=== PATIENT | female | born 1940 | race Caucasian/White ===

== ENCOUNTER 2019-11-14 11:40 | Inpatient (IN) | payer MEDICARE ==
[~2019-11-14 11:40] MED LIST: Iopamidol-370 76% 500 ML 1 ML ONE
[2019-11-14] MEDS ORDERED: Ondansetron PF 4 MG/2 ML Vial ONE (12:23)
[2019-11-14] MEDS ORDERED: Morphine 4 MG/ML VIAL ONE (12:23)
[2019-11-14 12:28] LABS: #Lymphocytes 0.5 thou/uL (1.20-3.40); #Monocytes 0.3 thou/uL (0.11-0.59); #Neutrophils 4.7 thou/uL (1.40-6.50); %Basophils 0.6 % (0.0-1.0); %Eosinophils 0.6 % (0.0-10.0); %Lymphocytes 8.6 % (21.0-51.0); %Monocytes 5.5 % (0.0-10.0); %Neutrophils 84.8 % (42.0-75.0); Hemoglobin 11.3 g/dL (12.0-16.0); Mean Corpuscular HGB CONC 31.3 g/dL (32.0-36.0); Mean Corpuscular Hemoglobin 25.8 pg (27.0-31.0); Mean Corpuscular Volume 82.3 fL (78.0-98.0); Mean Platelet Volume 10.9 fL (7.4-10.4); Platelet Count 169 thou/uL (130-400); White Blood Cell (WBC) Count 5.6 thou/uL (4.8-10.8)
--- NOTE | 2019-11-14 12:51 | RAD ---
PORTABLE CHEST: HISTORY: Acute liver failure. Bronchitis. COMPARISON: None. FINDINGS: The heart is mildly enlarged. Mild vascular engorgement. A single AICD lead overlies the right ventri mehul. CP angles are obscured and I cannot exclude small effusions. There could be mild bibasilar atele ctasis or infiltrate. The left lung base is poorly evaluated. IMPRESSION: Mild cardiomegaly and mild vascular engorgement. Evidence of small effusions. Question left basilar a telectasis or infiltrate. POS: [facility]
[2019-11-14 12:57] LABS: ALT (SGPT) 108 U/L (8-55); AST (SGOT) 315 U/L (5-34); Albumin 3.5 g/dL (3.4-4.8); Alkaline Phosphatase 62 U/L (40-110); Anion Gap 12 mmol/L (10-20); BUN (Urea Nitrogen) 28 mg/dL (9.8-20.1); Bilirubin, Total 0.8 mg/dL (0.2-1.2); CK (CPK) 33 U/L (29-168); Calc. Creatinine Clearance 0 mL/min (70-130); Calcium 8.1 mg/dL (7.8-10.44); Carbon Dioxide 30 mmol/L (23-31); Chloride 100 mmol/L (98-107); Estimated GFR-MDRD 41; Globulin 3.3 g/dL (2.4-3.5); Glucose 132 mg/dL (83-110); Lipase 34 U/L (8-78); Potassium 3.9 mmol/L (3.5-5.1); Protein, Total 6.8 g/dL (6.0-8.3); Sodium 138 mmol/L (136-145)
--- NOTE | 2019-11-14 13:37 | CT ---
CT ABDOMEN AND PELVIS WITH IV CONTRAST: INDICATIONS: Left abdominal pain. COMPARISON: There are no comparison studies. FINDINGS: There are small bilateral pleural effusions on images through the lung bases. Low volume ascites is noted with fluid around the liver margin. There is a small amount of fluid arou nd the spleen and down the colonic gutters. The liver shows irregular margins, suggesting changes of cirrhosis. The liver is mildly heterogeneous with no focal liver mass lesion identified. The spleen is upper normal in size, measured at 12 cm. The pancreas is unremarkable. The adrenal glands are normal. The kidneys are unremarkable. Small bowel loops are of normal caliber. Appendix appears normal. Colon is unremarkable. Aorta of normal caliber. No adenopathy. Osseous structures show degenerative spine changes with centr al canal stenosis apparent at the L3-L4 and L4-L5 levels. IMPRESSION: 1. Small bilateral pleural effusions. 2. Low volume ascites. 3. Liver changes suggesting cirrhosis. POS: [facility]
[2019-11-14] MEDS ORDERED: Furosemide 40 MG/4 ML VIAL ONE (14:27)
[2019-11-14 14:51] LABS: HBCM Index 0.15 S/CO (0-0.79); HBSAg Index 0.33 S/CO (0-0.99); Hep A IgM AB Non-Reactive (NonReactive); Hep A IgM S/CO 0.13 S/CO (0-0.79); Hep B Surf Ag Non-Reactive S/CO (NonReactive); Hep C IgG Ab Non-Reactive (NonReactive); Hep C Index 0.18 S/CO (0-0.79); Hepatitis B Core IgM Abs Non-Reactive (NonReactive)
[2019-11-14 15:59] LABS: Base Excess-Venous 3.4 mmol/L (-2.0 to 3.0); Bicarbonate (HCO3v) 28.3 mmol/L (22.0-28.0); CO2 Tension (PvCO2) 43.2 mmHg (40.0-50.0); Calcium, Ionized 0.92 mmol/L (See Comments:); Chloride 102 mmol/L (98-107); Hemoglobin - Calc 12.9 g/dL (12.0-16.0); Potassium 3.7 mmol/L (3.5-5.1); Sodium 139 mmol/L (138-145); T. Carbon Dioxide 29.6 mmol/L (22.0-28.0); vO2 Saturation-calc 92.2 % (60.0-85.0)
[2019-11-14 16:20] LABS: Bilirubin Negative (Negative); Blood, Urine Negative (Negative); Clarity Clear (Clear); Glucose, Urine (Dipstick) Normal (Negative); Leukocyte Negative Leu/uL (Negative); Nitrite Negative (Negative); Protein, Urine (Dipstick) Negative (Neg-Trace); Urobilinogen Normal mg/dL (Less than 2)
--- NOTE | 2019-11-14 16:22 | HP ---
PRIMARY CARE PHYSICIAN: Apolonia Montero. REASON FOR ADMISSION: Sent by primary care physician for abnormal liver test as well as worsening shortness of breath. HISTORY OF PRESENT ILLNESS: A 79-year-old female who has remote history of breast cancer and she was treated with chemotherapy with Adriamycin. Subsequently, the patient was having increasing shortness of breath. The patient was thinking that she might have asthma and one day the patient required emergency visit and required ICU admission and subsequently, the patient was diagnosed with systolic heart failure. The patient also required defibrillator subsequently as per the patient's knowledge. Based on last echocardiography, her EF is 35% to 40% which was dropped from previously 45%. The patient is taking cardiac medication and the patient is following [facility] in [place], [place] and [place] The patient had a followup visit with primary care physician, which was recommended by screen cutter and trimmer because the patient was having cough productive of sputum and primary care physician prescribed her amoxicillin, prednisone, and Tessalon which she was taking for about a week. The patient also had routine blood test done last week and yesterday as well and that was abnormal and that is why primary care physician called her to go to emergency room for evaluation. The patient is not aware of any chronic liver problem. Today in the emergency room, routine blood test showed abnormal LFT and CT scan was finding suggestive of cirrhosis of liver. The patient also having increasing bilateral pleural effusion and ascites. The patient reports that even after walking few steps, she gets out of breath. She has orthopnea, PND, and leg swelling. She gained weight. She still has cough productive sputum. She denies any fever or chills. She denies any recent flu- like illness. She denies any constipation, diarrhea, melena, or hematochezia. PAST MEDICAL HISTORY: Chronic lymphedema in right arm; breast cancer, treated with chemotherapy; chronic systolic heart failure; hypothyroidism; diabetes type 2, insulin dependent; gastroesophageal reflux disease; cirrhosis of liver; eczema. PAST SURGICAL HISTORY: Cholecystectomy, right mastectomy, hysterectomy, thyroidectomy, defibrillator placement. PAST PSYCHIATRIC HISTORY: Reviewed and negative. SOCIAL HISTORY: The patient lives at home. No history of tobacco, alcohol, or illicit drug abuse. FAMILY HISTORY: No strong family history of premature coronary artery disease, stroke, or cancer. ALLERGIES: VICODIN. CURRENT HOME MEDICATIONS: The patient does not have any medication with her at this point so unable to review at this point, but the patient is going to bring medication list. At that time, we will review. EMERGENCY ROOM COURSE: The patient is given Lasix 80 mg, DuoNeb therapy, Zofran therapy, morphine 2 mg. REVIEW OF SYSTEMS: CONSTITUTIONAL: Negative for weight loss or gain, ability to conduct usual activities. SKIN: Negative for rash, itching. EYES: Negative for double vision, pain. ENT/MOUTH: Negative for nose bleeding, neck stiffness, pain, tenderness. CARDIOVASCULAR: Negative for palpitations, dyspnea on exertion, orthopnea. RESPIRATORY: Negative for shortness of breath, wheezing, cough, hemoptysis, fever or night sweats. GASTROINTESTINAL: Negative for poor appetite, abdominal pain, heartburn, nausea , vomiting, constipation, or diarrhea. GENITOURINARY: Negative for urgency, frequency, dysuria, nocturia. MUSCULOSKELETAL: Negative for pain, swelling. NEUROLOGIC/PSYCHIATRIC: Negative for anxiety, depression. ALLERGY/IMMUNOLOGIC: Negative for skin rash, bleeding tendency. Please see my HPI for pertinent positives and negatives. All other review of systems reviewed and negative except as mentioned in HPI. PHYSICAL EXAMINATION: VITAL SIGNS: Currently, blood pressure 145/83, pulse 62, respiratory rate 19, temperature 97.7, saturation 96% on room air. Weight 100 kg. GENERAL: The patient is currently alert and awake, no obvious acute distress. HEENT: Head; normocephalic, atraumatic. Eyes; pupils round, reactive to light. Extraocular muscle intact. ENT; oropharynx within normal limits. Moist mucous membranes. No oral lesion. No pharyngeal erythema. No exudate. NECK: Supple. Elevated JVD. No thyromegaly. No carotid bruit. LUNGS: Bibasilar rales noted. Air entry reduced. Few end-expiratory wheezing heard. CARDIAC: S1 and S2 appears regular. No murmur. No gallop. No rub. ABDOMEN: Obesity present. Bowel sounds present. Nontender. Nondistended. No organomegaly. No mass. EXTREMITIES: Bilateral lower extremity pitting edema noted. Good distal pulsation. SKIN: No skin rash. HEMATOLOGIC: No lymphadenopathy. PSYCHIATRIC: Normal affect. SIGNIFICANT LABORATORY DATA: CBC; WBC 5.6, hemoglobin 11.3, platelet 169. BMP; sodium 138, potassium 3.9, chloride 100, carbon dioxide 30, anion gap 12, BUN 28 , creatinine 1.27, glucose 132, calcium 8.1. Lactic acid 1.0. LFT; AST 315, ALT 108, alkaline phosphatase 62, albumin 3.5, ammonia 26. CK 33, troponin I 0.015. BNP 2196.7. Lipase 34. Hepatitis profile negative. CT abdomen and pelvis showing small bilateral pleural effusion, low volume ascites, cirrhosis of liver. Chest x-ray consistent with mild cardiomegaly, mild vascular congestion, small effusion. ASSESSMENT AND PLAN: 1. Acute on chronic systolic congestive heart failure exacerbation. The patient will have echocardiography done. Continue with Lasix 40 mg IV b.i.d. Monitor renal function and electrolytes accordingly. We will consider resuming beta kay, DESI inhibitor after verification of the patient's home dosage. We will obtain echocardiography as well to confirm the EF. The patient has nonischemic cardiomyopathy after chemotherapy for breast cancer. The patient already had AICD in place. We will monitor on telemetry floor for any arrhythmia. 2. Abnormal LFT. Hepatitis profile is negative. CT scan is suggestive of cirrhosis, most likely related with passive congestion or possibly from nonalcoholic steatohepatitis given the patient has morbid obesity, diabetes, hypertension that contributing to her cirrhosis. Gastroenterology will be consulted for further evaluation. More testing will defer to GI. We will repeat LFT tomorrow. We will also check alpha-fetoprotein level tomorrow. The patient may have underlying cardiac cirrhosis as well from systolic heart failure. 3. Diabetes type 2. We will continue insulin as per sliding scale protocol. Diabetic diet will be given. 4. Anemia, normocytic and normochromic. We will continue ferrous sulfate 325 mg p.o. daily. 5. Hypertension. We will resume patient on blood pressure medication. 6. Hypothyroidism. We will continue patient on Synthroid as per home dosage. 7. History of breast cancer with right lymphedema, supportive care. 8. Gastroesophageal reflux disease. We will continue Pepcid 20 mg p.o. b.i.d. 9. Deep venous thrombosis prophylaxis, Lovenox 40 mg subcu daily. GI prophylaxis, Pepcid 20 mg p.o. b.i.d. CODE STATUS: The patient is full code. DISPOSITION PLAN: Based on clinical course, we are expecting the patient's stay in hospital more than 2 midnights. Plan of care discussed with the patient in detail. Job ID: [id number] [facility]
[2019-11-14] MEDS ORDERED: Zolpidem Tartrate 5 MG TAB PO PRN (17:03)
[2019-11-14] MEDS ORDERED: Nitroglycerin 0.4 MG TAB (25 Tab Bottle) SL PRN (17:03)
[2019-11-14] MEDS ORDERED: Cepastat Lozenges 1 LOZ PO PRN (17:03)
[2019-11-14] MEDS ORDERED: Dextrose 50% Abboject 50 ML SYRINGE SLOW IVP PRN (17:03)
[2019-11-14] MEDS ORDERED: Ondansetron PF 4 MG/2 ML Vial IVP PRN (17:03)
[2019-11-14] MEDS ORDERED: hydrALAZINE 20 MG/ML VIAL SLOW IVP PRN (17:03)
[2019-11-14] MEDS ORDERED: Senokot S 8.6-50 MG TAB PO PRN (17:03)
[2019-11-14] MEDS ORDERED: Bisacodyl 10 MG SUPP PR PRN (17:03)
[2019-11-14] MEDS ORDERED: Ondansetron ODT 4 MG TAB PO PRN (17:03)
[2019-11-14] MEDS ORDERED: Acetaminophen 325 MG TAB PO PRN (17:03)
[2019-11-14] MEDS ORDERED: Sodium Chloride 0.65% Nasal 44 ML BOT EA NARE PRN (17:03)
[2019-11-14] MEDS ORDERED: Loratadine 10 MG TAB PO PRN (17:03)
[2019-11-14] MEDS ORDERED: Loperamide HCl 2 MG CAP PO PRN (17:03)
[2019-11-14] MEDS ORDERED: Dextrose 5% in Water 1,000 ML IV PRN (17:03)
[2019-11-14] MEDS ORDERED: Calcium Carbonate 500 MG ChewTAB PO PRN (17:03)
[2019-11-14] MEDS ORDERED: Artificial Tears 18 DROP/0.9 ML EA EYE PRN (17:03)
[2019-11-14 18:33] LABS: Troponin I Less than 0.010 ng/mL (< 0.028)
[2019-11-14] MEDS: cefTRIAXone\\ROCEPHIN 1 GM in Sodium Chloride 0.9% 100 ML IVPB SCH (20:23)
[2019-11-14] MEDS ORDERED: Carvedilol 3.125 MG TAB PO SCH (21:00)
[2019-11-14] MEDS ORDERED: Famotidine 20 MG TAB PO SCH (21:00)
[2019-11-14] MEDS: HumaLOG 300 UNITS/3 ML VIAL SC PRN (21:11)
[2019-11-15 04:34] LABS: #Lymphocytes 1.1 thou/uL (1.20-3.40); #Monocytes 0.4 thou/uL (0.11-0.59); #Neutrophils 2.4 thou/uL (1.40-6.50); %Basophils 0.5 % (0.0-1.0); %Eosinophils 1.2 % (0.0-10.0); %Lymphocytes 27.1 % (21.0-51.0); %Monocytes 9.6 % (0.0-10.0); %Neutrophils 61.7 % (42.0-75.0); Hemoglobin 11.2 g/dL (12.0-16.0); Mean Corpuscular HGB CONC 32.4 g/dL (32.0-36.0); Mean Corpuscular Hemoglobin 26.7 pg (27.0-31.0); Mean Corpuscular Volume 82.3 fL (78.0-98.0); Mean Platelet Volume 11.4 fL (7.4-10.4); Platelet Count 161 thou/uL (130-400); RBC Distribution Width 17.2 % (11.5-14.5); Red Blood Cell (RBC) Count 4.19 mill/uL (4.20-5.40); White Blood Cell (WBC) Count 3.9 thou/uL (4.8-10.8)
[2019-11-15 05:11] LABS: ALT (SGPT) 99 U/L (8-55); AST (SGOT) 256 U/L (5-34); Alkaline Phosphatase 52 U/L (40-110); Anion Gap 13 mmol/L (10-20); BUN (Urea Nitrogen) 27 mg/dL (9.8-20.1); Bilirubin, Total 0.6 mg/dL (0.2-1.2); Calc. Creatinine Clearance 54 mL/min (70-130); Calcium 7.7 mg/dL (7.8-10.44); Carbon Dioxide 26 mmol/L (23-31); Chloride 101 mmol/L (98-107); Estimated GFR-MDRD 44; Globulin 3.1 g/dL (2.4-3.5); Glucose 93 mg/dL (83-110); Magnesium 1.7 mg/dL (1.6-2.6); Potassium 3.4 mmol/L (3.5-5.1); Protein, Total 6.1 g/dL (6.0-8.3); Sodium 137 mmol/L (136-145)
[2019-11-15] MEDS: Furosemide 40 MG/4 ML VIAL SLOW IVP SCH ×2 (05:37→15:10)
[2019-11-15] MEDS ORDERED: PROVENTIL INHALER 6.7 G (200 INHALATIONS) INH PRN (07:31)
[2019-11-15] MEDS ORDERED: Potassium Chloride 20 MEQ TAB PO SCH (07:45)
[2019-11-15] MEDS: Carvedilol 25 MG TAB PO SCH ×2 (08:32→22:30)
[2019-11-15] MEDS: Aspirin 81 mg Enteric Coated Tablet PO SCH (08:32)
[2019-11-15] MEDS: Spironolactone 25 MG TAB PO SCH (08:33)
[2019-11-15] MEDS: Sacubitril 49 MG/Valsartan 51 MG TABLET PO SCH ×2 (08:33→22:29)
[2019-11-15] MEDS: Doxycycline 100 MG CAP PO SCH ×2 (08:33→22:31)
[2019-11-15] MEDS: Enoxaparin Sodium 40 MG/0.4 ML SYRINGE SC SCH (08:33)
[2019-11-15] MEDS: Saccharomyces boulardii 250 MG CAP PO SCH (08:33)
[2019-11-15] MEDS: guaiFENesin ER 600 MG TAB PO SCH ×2 (08:34→22:31)
[2019-11-15] MEDS ORDERED: Aspirin Chewable 81 MG TAB PO SCH (09:00)
[2019-11-15] MEDS ORDERED: Lisinopril 2.5 MG TAB PO SCH (09:00)
--- NOTE | 2019-11-15 11:06 | PDOC.HOSPP ---
- Subjective Encounter Date: 11/15/19 Encounter Time: 07:50 Subjective: pt is wheezing this morning, able to talk in full sentence, still has cough, no chest pain - Objective Vital Signs & Weight: Vital Signs (12 hours) Temp Pulse Resp BP Pulse Ox 11/15/19 07:44 58 L 16 96 11/15/19 07:30 97.5 F L 57 L 21 H 138/64 96 11/15/19 03:43 97.8 F 61 14 136/60 95 11/15/19 01:21 58 L 16 96 11/14/19 23:26 97.4 F L 64 14 133/63 96 Weight Weight 191 lb 3.2 oz I&O: 11/14/19 11/15/19 11/16/19 06:59 06:59 06:59 Intake Total 700 Balance 700 Result Diagrams: 11/15/19 03:45 11/15/19 03:45 Additional Labs: Accuchecks 11/15/19 11/14/19 11/14/19 05:19 20:59 17:17 POC Glucose 78 245 H 147 H EKG Reviewed by me: Yes Hospitalist ROS - Review of Systems Respiratory: reports: cough, shortness of breath, SOB with excertion, wheezing. denies: dry, hemoptysis, pleuritic pain, sputum, other Cardiovascular: denies: chest pain, palpitations, orthopnea, paroxysmal noc. dyspnea, edema, light headedness, other Gastrointestinal: denies: nausea, vomiting, abdominal pain, diarrhea, constipation, melena, hematochezia, other Genitourinary: denies: dysuria, frequency, incontinence, hematuria, retention, other Musculoskeletal: denies: neck pain, shoulder pain, arm pain, back pain, hand pain, leg pain, foot pain, other - Medication Medications: Active Medications Generic Name Dose Route Start Last Admin Trade Name Freq PRN Reason Stop Dose Admin Albuterol/Ipratropium 3 ml 11/14/19 19:00 11/15/19 07:44 Duoneb NEB 3 ml [id number] QUIN Administration Aspirin 81 mg 11/15/19 09:00 11/15/19 08:32 Ecotrin PO 81 mg DAILY QUIN Administration Carvedilol 12.5 mg 11/15/19 09:00 11/15/19 08:32 Coreg PO 12.5 mg BID QUIN Administration Doxycycline Hyclate 100 mg 11/15/19 09:00 11/15/19 08:33 Vibramycin PO 100 mg BID QUIN Administration Enoxaparin Sodium 40 mg 11/15/19 09:00 11/15/19 08:33 Lovenox SC 40 mg 0900 QUIN Administration Furosemide 40 mg 11/15/19 06:00 11/15/19 05:37 Lasix SLOW IVP 40 mg 0600,1400 QUIN Administration Guaifenesin 600 mg 11/15/19 09:00 11/15/19 08:34 Mucinex PO 600 mg Q12HR QUIN Administration Ceftriaxone Sodium 1 gm/ 100 mls @ 200 mls/hr 11/14/19 19:00 11/14/19 20:23 Sodium Chloride IVPB 100 mls 1900 QUIN Administration Insulin Human Lispro 0 units 11/14/19 17:03 11/14/19 21:11 Humalog SC 2 unit .BEDTIME SLIDING SC PRN Administration Bedtime Correctional Scale Pantoprazole Sodium 40 mg 11/15/19 09:00 11/15/19 08:33 Protonix PO 40 mg DAILY QUIN Administration Saccharomyces Boulardii 250 mg 11/15/19 09:00 11/15/19 08:33 Florastor PO 250 mg DAILY QUIN Administration Sacubitril/Valsartan 2 tab 11/15/19 09:00 11/15/19 08:33 Entresto 49 Mg-51 Mg Tablet PO 2 tab BID QUIN Administration Sertraline HCl 100 mg 11/15/19 09:00 11/15/19 08:33 Zoloft PO 100 mg BID QUIN Administration Spironolactone 12.5 mg 11/15/19 09:00 11/15/19 08:33 Aldactone PO 12.5 mg DAILY QUIN Administration - Exam General Appearance: NAD, awake alert Eye: PERRL, anicteric sclera ENT: normocephalic atraumatic, no oropharyngeal lesions Neck: supple, symmetric, no JVD Heart: RRR, no gallops Respiratory: rales, rhonchi, wheezes Gastrointestinal: soft, non-tender, non-distended, normal bowel sounds Extremities: no cyanosis, 1+ LE edema Skin: normal turgor, no lesions Neurological: no focal deficits Musculoskeletal: normal tone, normal strength Psychiatric: normal affect, normal behavior Hosp A/P (1) Acute on chronic systolic ACC/AHA stage C congestive heart failure Code(s): I50.23 - ACUTE ON CHRONIC SYSTOLIC (CONGESTIVE) HEART FAILURE Status : Acute (2) Acute bronchitis Code(s): J20.9 - ACUTE BRONCHITIS, UNSPECIFIED Status: Acute (3) Obesity (BMI 30-39.9) Code(s): E66.9 - OBESITY, UNSPECIFIED Status: Chronic (4) Diabetes type 2, controlled Code(s): E11.9 - TYPE 2 DIABETES MELLITUS WITHOUT COMPLICATIONS Status: Chronic (5) Hypertension Code(s): I10 - ESSENTIAL (PRIMARY) HYPERTENSION Status: Chronic (6) Dyslipidemia Code(s): E78.5 - HYPERLIPIDEMIA, UNSPECIFIED Status: Chronic (7) Hypothyroidism Code(s): E03.9 - HYPOTHYROIDISM, UNSPECIFIED Status: Chronic (8) GERD (gastroesophageal reflux disease) Code(s): K21.9 - GASTRO-ESOPHAGEAL REFLUX DISEASE WITHOUT ESOPHAGITIS Status: Chronic (9) CKD (chronic kidney disease), stage III Code(s): N18.3 - CHRONIC KIDNEY DISEASE, STAGE 3 (MODERATE) Status: Chronic (10) Cirrhosis of liver Code(s): K74.60 - UNSPECIFIED CIRRHOSIS OF LIVER Status: Chronic (11) Abnormal LFTs Code(s): R94.5 - ABNORMAL RESULTS OF LIVER FUNCTION STUDIES Status: Chronic - Plan old records reviewed/req, continue antibiotics, respiratory therapy 11/15/19- continue lasix, add solumedrol 40 mg iv q 8 hourly, add doxycyclin 100 mg po bid, add mucinex, add pulmicort nebs, home medication reconciled, echo pending, repeat labs tomorrow, monitor on tele
[2019-11-15] MEDS: methylPREDNISolone Sod Succ 40 MG VIAL IVP SCH ×3 (11:14→22:35)
[2019-11-15] MEDS: HumaLOG 300 UNITS/3 ML VIAL SC PRN (17:32)
[2019-11-15] MEDS: cefTRIAXone\\ROCEPHIN 1 GM in Sodium Chloride 0.9% 100 ML IVPB SCH (18:10)
[2019-11-15] MEDS: Budesonide 0.5 MG/2 ML NEB INH SCH (19:13)
[2019-11-15] MEDS ORDERED: INSULIN GLARGINE HUM REC ANLOG 8 UNIT SQ SCH (21:00)
[2019-11-15] MEDS: Benzonatate 100 MG CAP PO PRN (22:29)
[2019-11-15] MEDS: Insulin Glargine 8 UNITS in Pre-Filled Syringe 1 EACH SC SCH (22:34)
[2019-11-16 04:32] LABS: #Lymphocytes 0.7 thou/uL (1.20-3.40); #Monocytes 0.2 thou/uL (0.11-0.59); #Neutrophils 2.6 thou/uL (1.40-6.50); %Basophils 0.3 % (0.0-1.0); %Eosinophils 0.2 % (0.0-10.0); %Lymphocytes 19.6 % (21.0-51.0); %Neutrophils 73.8 % (42.0-75.0); Mean Corpuscular HGB CONC 31.9 g/dL (32.0-36.0); Mean Corpuscular Volume 81.5 fL (78.0-98.0); Mean Platelet Volume 11.5 fL (7.4-10.4); Platelet Count 168 thou/uL (130-400); RBC Distribution Width 16.9 % (11.5-14.5); Red Blood Cell (RBC) Count 4.22 mill/uL (4.20-5.40); White Blood Cell (WBC) Count 3.6 thou/uL (4.8-10.8)
[2019-11-16 04:55] LABS: Anion Gap 13 mmol/L (10-20); BUN (Urea Nitrogen) 27 mg/dL (9.8-20.1); Calc. Creatinine Clearance 51 mL/min (70-130); Calcium 8.1 mg/dL (7.8-10.44); Carbon Dioxide 29 mmol/L (23-31); Chloride 102 mmol/L (98-107); Estimated GFR-MDRD 42; Glucose 185 mg/dL (83-110); Potassium 3.9 mmol/L (3.5-5.1); Sodium 140 mmol/L (136-145)
[2019-11-16] MEDS: Levothyroxine 150 MCG TAB PO SCH (06:07)
[2019-11-16] MEDS: Furosemide 40 MG/4 ML VIAL SLOW IVP SCH ×2 (06:07→14:31)
[2019-11-16] MEDS: methylPREDNISolone Sod Succ 40 MG VIAL IVP SCH ×3 (06:07→17:55)
[2019-11-16] MEDS: Benzonatate 100 MG CAP PO PRN (06:07)
[2019-11-16] MEDS: Budesonide 0.5 MG/2 ML NEB INH SCH ×2 (07:19→19:05)
[2019-11-16] MEDS ORDERED: Carvedilol 25 MG TAB PO SCH (09:45)
[2019-11-16] MEDS: Enoxaparin Sodium 40 MG/0.4 ML SYRINGE SC SCH (09:54)
[2019-11-16] MEDS: Aspirin 81 mg Enteric Coated Tablet PO SCH (09:54)
[2019-11-16] MEDS: Doxycycline 100 MG CAP PO SCH ×2 (09:54→20:42)
[2019-11-16] MEDS: guaiFENesin ER 600 MG TAB PO SCH ×2 (09:55→20:43)
[2019-11-16] MEDS: Spironolactone 25 MG TAB PO SCH (09:55)
[2019-11-16] MEDS: Sacubitril 49 MG/Valsartan 51 MG TABLET PO SCH ×2 (09:55→20:42)
[2019-11-16] MEDS: Saccharomyces boulardii 250 MG CAP PO SCH (09:55)
[2019-11-16] MEDS: Carvedilol 25 MG TAB PO SCH ×2 (09:58→20:43)
--- NOTE | 2019-11-16 10:23 | PDOC.HOSPP ---
- Subjective Encounter Date: 11/16/19 Encounter Time: 08:00 Subjective: has cough and still wheezing, better than yesterday - Objective Vital Signs & Weight: Vital Signs (12 hours) Temp Pulse Resp BP Pulse Ox 11/16/19 07:44 97.8 F 68 18 165/72 H 94 L 11/16/19 07:20 90 16 11/16/19 04:14 98.8 F 69 18 163/70 H 94 L 11/16/19 00:21 70 14 95 11/16/19 00:00 97.8 F 69 18 174/83 H 100 Weight Admit Weight 191 lb Weight 189 lb 2 oz I&O: 11/15/19 11/16/19 11/17/19 06:59 06:59 06:59 Intake Total 700 1000 Output Total 420 Balance 700 580 Result Diagrams: 11/16/19 03:37 11/16/19 03:37 Additional Labs: Accuchecks 11/16/19 11/15/19 11/15/19 05:19 20:40 16:50 POC Glucose 165 H 191 H 245 H 11/15/19 10:40 POC Glucose 105 EKG Reviewed by me: Yes Hospitalist ROS - Review of Systems ENT: denies: ear pain, ear discharge, nose pain, nose discharge, nose congestion , mouth pain, mouth swelling, throat pain, throat swelling, other Respiratory: reports: cough, shortness of breath, wheezing. denies: dry, hemoptysis, SOB with excertion, pleuritic pain, sputum, other Cardiovascular: denies: chest pain, palpitations, orthopnea, paroxysmal noc. dyspnea, edema, light headedness, other Gastrointestinal: denies: nausea, vomiting, abdominal pain, diarrhea, constipation, melena, hematochezia, other Genitourinary: denies: dysuria, frequency, incontinence, hematuria, retention, other Musculoskeletal: denies: neck pain, shoulder pain, arm pain, back pain, hand pain, leg pain, foot pain, other - Medication Medications: Active Medications Generic Name Dose Route Start Last Admin Trade Name Freq PRN Reason Stop Dose Admin Aspirin 81 mg 11/15/19 09:00 11/16/19 09:54 Ecotrin PO 81 mg DAILY QUIN Administration Benzonatate 100 mg 11/14/19 17:03 11/16/19 06:07 Tessalon PO 100 mg Q6H PRN Administration Cough Budesonide 0.5 mg 11/15/19 18:30 11/16/19 07:19 Pulmicort Neb Solution INH 0.5 mg BID-RT QUIN Administration Carvedilol 25 mg 11/16/19 09:45 11/16/19 09:57 Coreg PO 11/16/19 11:45 25 mg NOW QUIN Administration Doxycycline Hyclate 100 mg 11/15/19 09:00 11/16/19 09:54 Vibramycin PO 100 mg BID QUIN Administration Enoxaparin Sodium 40 mg 11/15/19 09:00 11/16/19 09:54 Lovenox SC 40 mg 0900 QUIN Administration Furosemide 40 mg 11/15/19 06:00 11/16/19 06:07 Lasix SLOW IVP 40 mg 0600,1400 QUIN Administration Guaifenesin 600 mg 11/15/19 09:00 11/16/19 09:55 Mucinex PO 600 mg Q12HR QUIN Administration Ceftriaxone Sodium 1 gm/ 100 mls @ 200 mls/hr 11/14/19 19:00 11/15/19 18:10 Sodium Chloride IVPB 100 mls 1900 QUIN Administration Insulin Glargine 8 units/ 0.08 mls @ 0 mls/hr 11/15/19 21:00 11/15/19 22:34 Miscellaneous Medication SC 0.08 mls HS QUIN Administration Insulin Human Lispro 0 units 11/14/19 17:03 11/15/19 17:32 Humalog SC 4 unit .MODERATE SLIDING SC PRN Administration Moderate Correctional Scale Insulin Human Lispro 0 units 11/14/19 17:03 11/14/19 21:11 Humalog SC 2 unit .BEDTIME SLIDING SC PRN Administration Bedtime Correctional Scale Levothyroxine Sodium 150 mcg 11/16/19 06:00 11/16/19 06:07 Synthroid PO 150 mcg 0600 QUIN Administration Methylprednisolone Sodium Succinate 40 mg 11/15/19 12:00 11/16/19 06:07 Solu-Medrol IVP 40 mg Q6HR QUIN Administration Pantoprazole Sodium 40 mg 11/15/19 09:00 11/16/19 09:55 Protonix PO 40 mg DAILY QUIN Administration Saccharomyces Boulardii 250 mg 11/15/19 09:00 11/16/19 09:55 Florastor PO 250 mg DAILY QUIN Administration Sacubitril/Valsartan 2 tab 11/15/19 09:00 11/16/19 09:55 Entresto 49 Mg-51 Mg Tablet PO 2 tab BID QUIN Administration Sertraline HCl 100 mg 11/15/19 09:00 11/16/19 09:55 Zoloft PO 100 mg BID QUIN Administration Spironolactone 12.5 mg 11/15/19 09:00 11/16/19 09:55 Aldactone PO 12.5 mg DAILY QUIN Administration - Exam General Appearance: NAD, awake alert Eye: PERRL, anicteric sclera ENT: normocephalic atraumatic, no oropharyngeal lesions Neck: supple, symmetric, no JVD Heart: RRR, no murmur, no gallops Respiratory: rhonchi, wheezes Gastrointestinal: soft, non-tender, non-distended, normal bowel sounds Extremities: no cyanosis, no clubbing, no edema Skin: normal turgor, no lesions Neurological: no focal deficits Musculoskeletal: normal tone, normal strength Psychiatric: normal affect, normal behavior Hosp A/P (1) Acute on chronic systolic ACC/AHA stage C congestive heart failure Code(s): I50.23 - ACUTE ON CHRONIC SYSTOLIC (CONGESTIVE) HEART FAILURE Status : Acute (2) Acute bronchitis Code(s): J20.9 - ACUTE BRONCHITIS, UNSPECIFIED Status: Acute (3) Obesity (BMI 30-39.9) Code(s): E66.9 - OBESITY, UNSPECIFIED Status: Chronic (4) Diabetes type 2, controlled Code(s): E11.9 - TYPE 2 DIABETES MELLITUS WITHOUT COMPLICATIONS Status: Chronic (5) Hypertension Code(s): I10 - ESSENTIAL (PRIMARY) HYPERTENSION Status: Chronic (6) Dyslipidemia Code(s): E78.5 - HYPERLIPIDEMIA, UNSPECIFIED Status: Chronic (7) Hypothyroidism Code(s): E03.9 - HYPOTHYROIDISM, UNSPECIFIED Status: Chronic (8) GERD (gastroesophageal reflux disease) Code(s): K21.9 - GASTRO-ESOPHAGEAL REFLUX DISEASE WITHOUT ESOPHAGITIS Status: Chronic (9) CKD (chronic kidney disease), stage III Code(s): N18.3 - CHRONIC KIDNEY DISEASE, STAGE 3 (MODERATE) Status: Chronic (10) Cirrhosis of liver Code(s): K74.60 - UNSPECIFIED CIRRHOSIS OF LIVER Status: Chronic (11) Abnormal LFTs Code(s): R94.5 - ABNORMAL RESULTS OF LIVER FUNCTION STUDIES Status: Chronic - Plan old records reviewed/req, continue antibiotics 11/15/19- continue lasix, add solumedrol 40 mg iv q 8 hourly, add doxycyclin 100 mg po bid, add mucinex, add pulmicort nebs, home medication reconciled, echo pending, repeat labs tomorrow, monitor on tele 11/16/19, get chest xray today, increase duoneb q 4 hourly, continue solumedrol and iv rocephin with doxy and iv lasix, medication reviewed and continue to provide symptomatic treatment
--- NOTE | 2019-11-16 11:09 | RAD ---
EXAM: XR Chest Pa Lat STANDARD PROVIDED CLINICAL HISTORY: Dyspnea COMPARISON: 11/14/2019 FINDINGS: Cardiac silhouette remains enlarged. Left subclavian cardiac pacing device is again seen in similar p osition. Blunting of each costophrenic angle compatible with pleural effusions redemonstrated. Prominence of the pulmonary vasculature without focal consolidation or pneumothorax evident. IMPRESSION: Cardiomegaly and bilateral pleural effusions.
[2019-11-16] MEDS: HumaLOG 300 UNITS/3 ML VIAL SC PRN ×2 (11:21→17:54)
[2019-11-16] MEDS: cefTRIAXone\\ROCEPHIN 1 GM in Sodium Chloride 0.9% 100 ML IVPB SCH (18:08)
[2019-11-16] MEDS: Insulin Glargine 8 UNITS in Pre-Filled Syringe 1 EACH SC SCH (20:43)
[2019-11-17] MEDS: methylPREDNISolone Sod Succ 40 MG VIAL IVP SCH ×5 (00:32→23:26)
[2019-11-17 04:50] LABS: #Lymphocytes 0.7 thou/uL (1.20-3.40); #Monocytes 0.3 thou/uL (0.11-0.59); #Neutrophils 4.7 thou/uL (1.40-6.50); %Basophils 0.2 % (0.0-1.0); %Eosinophils 0.1 % (0.0-10.0); %Lymphocytes 12.1 % (21.0-51.0); %Monocytes 4.6 % (0.0-10.0); %Neutrophils 82.9 % (42.0-75.0); Hemoglobin 10.9 g/dL (12.0-16.0); Mean Corpuscular HGB CONC 32.5 g/dL (32.0-36.0); Mean Corpuscular Hemoglobin 26.4 pg (27.0-31.0); Mean Corpuscular Volume 81.1 fL (78.0-98.0); Mean Platelet Volume 11.3 fL (7.4-10.4); Platelet Count 169 thou/uL (130-400); RBC Distribution Width 16.8 % (11.5-14.5); Red Blood Cell (RBC) Count 4.13 mill/uL (4.20-5.40); White Blood Cell (WBC) Count 5.6 thou/uL (4.8-10.8)
[2019-11-17] MEDS: Furosemide 40 MG/4 ML VIAL SLOW IVP SCH ×2 (05:12→13:02)
[2019-11-17] MEDS: Levothyroxine 150 MCG TAB PO SCH (05:12)
[2019-11-17 05:13] LABS: ALT (SGPT) 82 U/L (8-55); AST (SGOT) 136 U/L (5-34); Albumin 3.1 g/dL (3.4-4.8); Alkaline Phosphatase 53 U/L (40-110); Anion Gap 13 mmol/L (10-20); BUN (Urea Nitrogen) 37 mg/dL (9.8-20.1); Bilirubin, Total 0.6 mg/dL (0.2-1.2); Calc. Creatinine Clearance 55 mL/min (70-130); Calcium 8.7 mg/dL (7.8-10.44); Carbon Dioxide 30 mmol/L (23-31); Chloride 100 mmol/L (98-107); Estimated GFR-MDRD 45; Globulin 3.3 g/dL (2.4-3.5); Glucose 162 mg/dL (83-110); Potassium 3.9 mmol/L (3.5-5.1); Protein, Total 6.4 g/dL (6.0-8.3); Sodium 139 mmol/L (136-145)
[2019-11-17] MEDS: Budesonide 0.5 MG/2 ML NEB INH SCH ×2 (06:35→18:35)
[2019-11-17] MEDS: Aspirin 81 mg Enteric Coated Tablet PO SCH (09:28)
[2019-11-17] MEDS: Enoxaparin Sodium 40 MG/0.4 ML SYRINGE SC SCH (09:29)
[2019-11-17] MEDS: Carvedilol 25 MG TAB PO SCH ×2 (09:29→19:58)
[2019-11-17] MEDS: Doxycycline 100 MG CAP PO SCH ×2 (09:29→19:59)
[2019-11-17] MEDS: guaiFENesin ER 600 MG TAB PO SCH ×2 (09:29→19:58)
[2019-11-17] MEDS: Spironolactone 25 MG TAB PO SCH (09:30)
[2019-11-17] MEDS: Sacubitril 49 MG/Valsartan 51 MG TABLET PO SCH ×2 (09:30→19:58)
[2019-11-17] MEDS: Saccharomyces boulardii 250 MG CAP PO SCH (09:30)
--- NOTE | 2019-11-17 11:33 | PDOC.HOSPP ---
- Subjective Encounter Date: 11/17/19 Encounter Time: 08:00 Subjective: has cough, on room air, dyspnea improving but still wheezing - Objective Vital Signs & Weight: Vital Signs (12 hours) Temp Pulse Resp BP Pulse Ox 11/17/19 10:27 73 20 94 L 11/17/19 07:33 97.5 F L 68 18 155/70 H 96 11/17/19 06:35 68 18 95 11/17/19 04:18 97.4 F L 69 14 162/68 H 93 L 11/17/19 02:48 67 16 96 Weight Admit Weight 191 lb Weight 190 lb 12.8 oz I&O: 11/16/19 11/17/19 11/18/19 06:59 06:59 06:59 Intake Total 1000 660 Output Total 420 Balance 580 660 Result Diagrams: 11/17/19 04:14 11/17/19 04:14 Additional Labs: Accuchecks 11/17/19 11/16/19 11/16/19 10:29 20:49 16:34 POC Glucose 277 H 200 H 224 H Radiology Reviewed by me: Yes EKG Reviewed by me: Yes Hospitalist ROS - Review of Systems ENT: denies: ear pain, ear discharge, nose pain, nose discharge, nose congestion , mouth pain, mouth swelling, throat pain, throat swelling, other Respiratory: reports: cough, shortness of breath, SOB with excertion, wheezing. denies: dry, hemoptysis, pleuritic pain, sputum, other Cardiovascular: denies: chest pain, palpitations, orthopnea, paroxysmal noc. dyspnea, edema, light headedness, other Gastrointestinal: denies: nausea, vomiting, abdominal pain, diarrhea, constipation, melena, hematochezia, other Genitourinary: denies: dysuria, frequency, incontinence, hematuria, retention, other Musculoskeletal: denies: neck pain, shoulder pain, arm pain, back pain, hand pain, leg pain, foot pain, other - Medication Medications: Active Medications Generic Name Dose Route Start Last Admin Trade Name Freq PRN Reason Stop Dose Admin Albuterol/Ipratropium 3 ml 11/16/19 10:30 11/17/19 10:27 Duoneb NEB 3 ml [id number] QUIN Administration Aspirin 81 mg 11/15/19 09:00 11/17/19 09:28 Ecotrin PO 81 mg DAILY QUIN Administration Benzonatate 100 mg 11/14/19 17:03 11/16/19 06:07 Tessalon PO 100 mg Q6H PRN Administration Cough Budesonide 0.5 mg 11/15/19 18:30 11/17/19 06:35 Pulmicort Neb Solution INH 0.5 mg BID-RT QUIN Administration Carvedilol 25 mg 11/16/19 21:00 11/17/19 09:29 Coreg PO 25 mg BID QUIN Administration Doxycycline Hyclate 100 mg 11/15/19 09:00 11/17/19 09:29 Vibramycin PO 100 mg BID QUIN Administration Enoxaparin Sodium 40 mg 11/15/19 09:00 11/17/19 09:29 Lovenox SC 40 mg 0900 QUIN Administration Furosemide 40 mg 11/15/19 06:00 11/17/19 05:12 Lasix SLOW IVP 40 mg 0600,1400 QUIN Administration Guaifenesin 600 mg 11/15/19 09:00 11/17/19 09:29 Mucinex PO 600 mg Q12HR QUIN Administration Ceftriaxone Sodium 1 gm/ 100 mls @ 200 mls/hr 11/14/19 19:00 11/16/19 18:08 Sodium Chloride IVPB 100 mls 1900 QUIN Administration Insulin Glargine 8 units/ 0.08 mls @ 0 mls/hr 11/15/19 21:00 11/16/19 20:43 Miscellaneous Medication SC 0.08 mls HS QUIN Administration Insulin Human Lispro 0 units 11/14/19 17:03 11/16/19 17:54 Humalog SC 4 unit .MODERATE SLIDING SC PRN Administration Moderate Correctional Scale Insulin Human Lispro 0 units 11/14/19 17:03 11/14/19 21:11 Humalog SC 2 unit .BEDTIME SLIDING SC PRN Administration Bedtime Correctional Scale Levothyroxine Sodium 150 mcg 11/16/19 06:00 11/17/19 05:12 Synthroid PO 150 mcg 0600 QUIN Administration Methylprednisolone Sodium Succinate 40 mg 11/15/19 12:00 11/17/19 05:12 Solu-Medrol IVP 40 mg Q6HR QUIN Administration Pantoprazole Sodium 40 mg 11/15/19 09:00 11/17/19 09:29 Protonix PO 40 mg DAILY QUIN Administration Saccharomyces Boulardii 250 mg 11/15/19 09:00 11/17/19 09:30 Florastor PO 250 mg DAILY QUIN Administration Sacubitril/Valsartan 2 tab 11/15/19 09:00 11/17/19 09:30 Entresto 49 Mg-51 Mg Tablet PO 2 tab BID QUIN Administration Sertraline HCl 100 mg 11/15/19 09:00 11/17/19 09:30 Zoloft PO 100 mg BID QUIN Administration Spironolactone 12.5 mg 11/15/19 09:00 11/17/19 09:30 Aldactone PO 12.5 mg DAILY QUIN Administration - Exam General Appearance: NAD, awake alert Eye: PERRL, anicteric sclera ENT: normocephalic atraumatic, no oropharyngeal lesions Neck: supple, symmetric, no JVD Heart: RRR, no murmur, no gallops, no rubs Respiratory: CTAB, no wheezes, no rales, no ronchi Gastrointestinal: soft, non-tender, non-distended, normal bowel sounds Extremities: no cyanosis, no clubbing, no edema Skin: normal turgor, no lesions Neurological: no focal deficits Musculoskeletal: normal tone, normal strength Psychiatric: normal affect, normal behavior Hosp A/P (1) Acute on chronic systolic ACC/AHA stage C congestive heart failure Code(s): I50.23 - ACUTE ON CHRONIC SYSTOLIC (CONGESTIVE) HEART FAILURE Status : Acute (2) Acute bronchitis Code(s): J20.9 - ACUTE BRONCHITIS, UNSPECIFIED Status: Acute (3) Obesity (BMI 30-39.9) Code(s): E66.9 - OBESITY, UNSPECIFIED Status: Chronic (4) Diabetes type 2, controlled Code(s): E11.9 - TYPE 2 DIABETES MELLITUS WITHOUT COMPLICATIONS Status: Chronic (5) Hypertension Code(s): I10 - ESSENTIAL (PRIMARY) HYPERTENSION Status: Chronic (6) Dyslipidemia Code(s): E78.5 - HYPERLIPIDEMIA, UNSPECIFIED Status: Chronic (7) Hypothyroidism Code(s): E03.9 - HYPOTHYROIDISM, UNSPECIFIED Status: Chronic (8) GERD (gastroesophageal reflux disease) Code(s): K21.9 - GASTRO-ESOPHAGEAL REFLUX DISEASE WITHOUT ESOPHAGITIS Status: Chronic (9) CKD (chronic kidney disease), stage III Code(s): N18.3 - CHRONIC KIDNEY DISEASE, STAGE 3 (MODERATE) Status: Chronic (10) Cirrhosis of liver Code(s): K74.60 - UNSPECIFIED CIRRHOSIS OF LIVER Status: Chronic (11) Abnormal LFTs Code(s): R94.5 - ABNORMAL RESULTS OF LIVER FUNCTION STUDIES Status: Chronic - Plan old records reviewed/req 11/15/19- continue lasix, add solumedrol 40 mg iv q 8 hourly, add doxycyclin 100 mg po bid, add mucinex, add pulmicort nebs, home medication reconciled, echo pending, repeat labs tomorrow, monitor on tele 11/16/19, get chest xray today, increase duoneb q 4 hourly, continue solumedrol and iv rocephin with doxy and iv lasix, medication reviewed and continue to provide symptomatic treatment 11/17/19 cardiology consulted for worsening of EF, medication reviewed and continue to provide symptomatic treatment, continue current medication
[2019-11-17] MEDS: HumaLOG 300 UNITS/3 ML VIAL SC PRN ×2 (12:56→21:23)
[2019-11-17] MEDS: cefTRIAXone\\ROCEPHIN 1 GM in Sodium Chloride 0.9% 100 ML IVPB SCH (18:48)
[2019-11-17] MEDS: Benzonatate 100 MG CAP PO PRN (19:59)
[2019-11-17] MEDS: Diabetic Tussin 200 MG/10 ML UDCUP PO PRN (19:59)
[2019-11-17] MEDS: Insulin Glargine 8 UNITS in Pre-Filled Syringe 1 EACH SC SCH (21:24)
[2019-11-18] MEDS: Levothyroxine 150 MCG TAB PO SCH (05:33)
[2019-11-18] MEDS: Furosemide 40 MG/4 ML VIAL SLOW IVP SCH ×2 (05:33→13:25)
[2019-11-18] MEDS: methylPREDNISolone Sod Succ 40 MG VIAL IVP SCH ×3 (05:33→20:13)
[2019-11-18] MEDS: Budesonide 0.5 MG/2 ML NEB INH SCH ×2 (07:13→18:36)
[2019-11-18] MEDS: Aspirin 81 mg Enteric Coated Tablet PO SCH (09:40)
[2019-11-18] MEDS: Enoxaparin Sodium 40 MG/0.4 ML SYRINGE SC SCH (09:40)
[2019-11-18] MEDS: Doxycycline 100 MG CAP PO SCH ×2 (09:40→20:12)
[2019-11-18] MEDS: Carvedilol 25 MG TAB PO SCH ×2 (09:40→20:12)
[2019-11-18] MEDS: Spironolactone 25 MG TAB PO SCH (09:41)
[2019-11-18] MEDS: Saccharomyces boulardii 250 MG CAP PO SCH (09:41)
[2019-11-18] MEDS: Sacubitril 49 MG/Valsartan 51 MG TABLET PO SCH ×2 (09:41→20:12)
[2019-11-18] MEDS: guaiFENesin ER 600 MG TAB PO SCH ×2 (09:41→20:12)
--- NOTE | 2019-11-18 10:47 | PDOC.HOSPP ---
- Subjective Encounter Date: 11/18/19 Encounter Time: 07:35 Subjective: pt is still wheezy, cardiology has not seen her yet, on room air, no fever - Objective Vital Signs & Weight: Vital Signs (12 hours) Temp Pulse Resp BP BP Pulse Ox 11/18/19 10:44 84 20 94 L 11/18/19 07:17 97.5 F L 72 18 164/77 H 95 11/18/19 07:13 93 18 100 11/18/19 03:35 98.0 F 72 16 164/76 H 94 L 11/17/19 23:27 75 20 158/72 H 96 Weight Admit Weight 191 lb Weight 188 lb I&O: 11/17/19 11/18/19 11/19/19 06:59 06:59 06:59 Intake Total 660 1170 Output Total 2400 Balance 660 -1230 Result Diagrams: 11/17/19 04:14 11/17/19 04:14 Additional Labs: Accuchecks 11/18/19 11/17/19 11/17/19 05:43 20:18 16:36 POC Glucose 154 H 223 H 156 H 11/17/19 11/17/19 12:58 10:29 POC Glucose 230 H 277 H EKG Reviewed by me: Yes Hospitalist ROS - Review of Systems Eyes: denies: pain, vision change, conjunctivae inflammation, eyelid inflammation, redness, other ENT: denies: ear pain, ear discharge, nose pain, nose discharge, nose congestion , mouth pain, mouth swelling, throat pain, throat swelling, other Respiratory: reports: cough, shortness of breath, SOB with excertion, wheezing. denies: dry, hemoptysis, pleuritic pain, sputum, other Cardiovascular: denies: chest pain, palpitations, orthopnea, paroxysmal noc. dyspnea, edema, light headedness, other Gastrointestinal: denies: nausea, vomiting, abdominal pain, diarrhea, constipation, melena, hematochezia, other Genitourinary: denies: dysuria, frequency, incontinence, hematuria, retention, other Musculoskeletal: denies: neck pain, shoulder pain, arm pain, back pain, hand pain, leg pain, foot pain, other - Medication Medications: Active Medications Generic Name Dose Route Start Last Admin Trade Name Freq PRN Reason Stop Dose Admin Albuterol/Ipratropium 3 ml 11/16/19 10:30 11/18/19 10:44 Duoneb NEB 3 ml [id number] QUIN Administration Aspirin 81 mg 11/15/19 09:00 11/18/19 09:40 Ecotrin PO 81 mg DAILY QUIN Administration Benzonatate 100 mg 11/14/19 17:03 11/17/19 19:59 Tessalon PO 100 mg Q6H PRN Administration Cough Budesonide 0.5 mg 11/15/19 18:30 11/18/19 07:13 Pulmicort Neb Solution INH 0.5 mg BID-RT QUIN Administration Carvedilol 25 mg 11/16/19 21:00 11/18/19 09:40 Coreg PO 25 mg BID QUIN Administration Doxycycline Hyclate 100 mg 11/15/19 09:00 11/18/19 09:40 Vibramycin PO 100 mg BID QUIN Administration Enoxaparin Sodium 40 mg 11/15/19 09:00 11/18/19 09:40 Lovenox SC 40 mg 0900 QUIN Administration Furosemide 40 mg 11/15/19 06:00 11/18/19 05:33 Lasix SLOW IVP 40 mg 0600,1400 QUIN Administration Guaifenesin 200 mg 11/14/19 17:03 11/17/19 19:59 Robitussin Sf PO 200 mg Q4H PRN Administration Cough Guaifenesin 600 mg 11/15/19 09:00 11/18/19 09:41 Mucinex PO 600 mg Q12HR QUIN Administration Ceftriaxone Sodium 1 gm/ 100 mls @ 200 mls/hr 11/14/19 19:00 11/17/19 18:48 Sodium Chloride IVPB 100 mls 1900 QUIN Administration Insulin Glargine 8 units/ 0.08 mls @ 0 mls/hr 11/15/19 21:00 11/17/19 21:24 Miscellaneous Medication SC 0.08 mls HS QUIN Administration Insulin Human Lispro 0 units 11/14/19 17:03 11/17/19 12:56 Humalog SC 4 unit .MODERATE SLIDING SC PRN Administration Moderate Correctional Scale Insulin Human Lispro 0 units 11/14/19 17:03 11/17/19 21:23 Humalog SC 2 unit .BEDTIME SLIDING SC PRN Administration Bedtime Correctional Scale Levothyroxine Sodium 150 mcg 11/16/19 06:00 11/18/19 05:33 Synthroid PO 150 mcg 0600 QUIN Administration Methylprednisolone Sodium Succinate 40 mg 11/15/19 12:00 11/18/19 05:33 Solu-Medrol IVP 40 mg Q6HR QUIN Administration Pantoprazole Sodium 40 mg 11/15/19 09:00 11/18/19 09:41 Protonix PO 40 mg DAILY QUIN Administration Saccharomyces Boulardii 250 mg 11/15/19 09:00 11/18/19 09:41 Florastor PO 250 mg DAILY QUIN Administration Sacubitril/Valsartan 2 tab 11/15/19 09:00 11/18/19 09:41 Entresto 49 Mg-51 Mg Tablet PO 2 tab BID QUIN Administration Sertraline HCl 100 mg 11/15/19 09:00 11/18/19 09:41 Zoloft PO 100 mg BID QUIN Administration Spironolactone 12.5 mg 11/15/19 09:00 11/18/19 09:41 Aldactone PO 12.5 mg DAILY QUIN Administration - Exam General Appearance: NAD, awake alert Eye: PERRL, anicteric sclera ENT: normocephalic atraumatic, no oropharyngeal lesions Neck: supple, symmetric, no JVD Heart: RRR, no murmur, no gallops, no rubs Respiratory: no rales, wheezes Gastrointestinal: soft, non-tender, non-distended, normal bowel sounds Extremities: no cyanosis, no clubbing Skin: normal turgor, no lesions Neurological: no focal deficits Musculoskeletal: normal tone, normal strength Psychiatric: normal affect, normal behavior, A&O x 3 Hosp A/P (1) Acute on chronic systolic ACC/AHA stage C congestive heart failure Code(s): I50.23 - ACUTE ON CHRONIC SYSTOLIC (CONGESTIVE) HEART FAILURE Status : Acute (2) Acute bronchitis Code(s): J20.9 - ACUTE BRONCHITIS, UNSPECIFIED Status: Acute Qualifiers: Bronchitis organism: unspecified organism Qualified Code(s): J20.9 - Acute bronchitis, unspecified (3) Obesity (BMI 30-39.9) Code(s): E66.9 - OBESITY, UNSPECIFIED Status: Chronic (4) Diabetes type 2, controlled Code(s): E11.9 - TYPE 2 DIABETES MELLITUS WITHOUT COMPLICATIONS Status: Chronic (5) Hypertension Code(s): I10 - ESSENTIAL (PRIMARY) HYPERTENSION Status: Chronic (6) Dyslipidemia Code(s): E78.5 - HYPERLIPIDEMIA, UNSPECIFIED Status: Chronic (7) Hypothyroidism Code(s): E03.9 - HYPOTHYROIDISM, UNSPECIFIED Status: Chronic (8) GERD (gastroesophageal reflux disease) Code(s): K21.9 - GASTRO-ESOPHAGEAL REFLUX DISEASE WITHOUT ESOPHAGITIS Status: Chronic (9) CKD (chronic kidney disease), stage III Code(s): N18.3 - CHRONIC KIDNEY DISEASE, STAGE 3 (MODERATE) Status: Chronic (10) Cirrhosis of liver Code(s): K74.60 - UNSPECIFIED CIRRHOSIS OF LIVER Status: Chronic (11) Abnormal LFTs Code(s): R94.5 - ABNORMAL RESULTS OF LIVER FUNCTION STUDIES Status: Chronic - Plan old records reviewed/req, continue antibiotics, respiratory therapy 11/15/19- continue lasix, add solumedrol 40 mg iv q 8 hourly, add doxycyclin 100 mg po bid, add mucinex, add pulmicort nebs, home medication reconciled, echo pending, repeat labs tomorrow, monitor on tele 11/16/19, get chest xray today, increase duoneb q 4 hourly, continue solumedrol and iv rocephin with doxy and iv lasix, medication reviewed and continue to provide symptomatic treatment 11/17/19 cardiology consulted for worsening of EF, medication reviewed and continue to provide symptomatic treatment, continue current medication 11/18/19- I am suspecting severe bronchitis but underlying pneumonia is also possible, will get CT chest, continue lasix, continue current antibiotic, reduce solumderol q 8rly, cardiology to see her for worsening of EF, expecting discharge in 24-48 hours.
--- NOTE | 2019-11-18 12:03 | CT ---
CT of chest noncontrast HISTORY: Dyspnea. Breast cancer. FINDINGS: There are patchy areas of ill-defined parenchymal infiltrate with predominantly groundglass opacity. More prominent in the upper lobes than the lower lobes. Bilateral pleural fluid is similar to CT abdomen from 11/14/2019. Upper airways patent. Lack of contrast limits evaluation of the soft tissues. There is calcification in the arterial struct ures including coronary arteries. Nonspecific, borderline size lymph nodes scattered throughout the mediastinum. Within the partially visualized upper abdomen, cirrhotic appearance of the liver is again demonstrate d. IMPRESSION: Multifocal pneumonitis bilateral. Predominantly within the upper lobes. Cause is not evid ent. Bilateral pleural effusions appear stable. Atherosclerosis.
[2019-11-18] MEDS ORDERED: Spironolactone 25 MG TAB PO SCH (12:45)
--- NOTE | 2019-11-18 13:58 | EKG ---
Test Reason : ABD PAIN Blood Pressure : / mmHG Vent. Rate : 058 BPM Atrial Rate : 058 BPM P-R Int : 162 ms QRS Dur : 074 ms QT Int : 452 ms P-R-T Axes : 065 075 030 degrees QTc Int : 443 ms Sinus bradycardia Anterior infarct , age undetermined Abnormal ECG Confirmed by ZACK MARX, CLARIBEL ([id number]), food expeditor MEL BAILEY ([id number]) on 11/18/2019 1:57:46 PM Referred By: ZACK Confirmed By:CLARIBEL DIXON MD
--- NOTE | 2019-11-18 13:59 | CON ---
DATE OF CONSULTATION: HISTORY OF PRESENT ILLNESS: The patient is a pleasant 79-year-old woman, who presented with increasing dyspnea and was noted to have elevated LFTs. The patient has a long history of nonischemic cardiomyopathy. She states in 2001, she received Adriamycin therapy for breast carcinoma. She subsequently developed congestive heart failure. She has been followed by a right of way cutter in [place]. The patient has been on appropriate medical therapy. She states that she subsequently has had placement of an automatic implantable cardiac defibrillator. The patient was in her usual state of health and has just noted a mild increased dyspnea on exertion. She saw her primary physician. Of note, she had elevated LFTs and she was admitted for further evaluation. The patient denies having any chest discomfort. PAST MEDICAL HISTORY: Significant for, 1. Cardiomyopathy. 2. Breast carcinoma. 3. Hypertension. 4. Dyslipidemia. PAST SURGICAL HISTORY: She has had cholecystectomy, bladder suspension, hysterectomy, thyroid surgery, and mastectomy. SOCIAL HISTORY: Nonsmoker. FAMILY HISTORY: No strong family history of heart disease. ALLERGIES: SHE IS ALLERGIC TO ACETAMINOPHEN, HYDROCODONE, PRAVASTATIN, AND LEVOFLOXACIN. MEDICATIONS: On admission included; 1. Entresto 97/103 b.i.d. 2. Synthroid 150 mcg daily. 3. Prilosec 20 daily. 4. Sertraline 100 b.i.d. 5. Lasix 40 daily. 6. Coreg 25 b.i.d. 7. Aspirin 81 daily. REVIEW OF SYSTEMS: Ten-point system noticeable for diarrhea, otherwise unremarkable. PHYSICAL EXAMINATION: GENERAL: Obese woman, in no acute distress. VITAL SIGNS: Blood pressure of 164/75. NECK: Showed no jugular venous distention. LUNGS: Have bilateral wheezes. HEART: Regular rate and rhythm. Normal S1 and S2. ABDOMEN: Distended. EXTREMITIES: Showed mild edema. VASCULAR: Radial pulse 2+. LABORATORY DATA: Sodium 139, potassium 3.9, chloride 100, bicarbonate 30, BUN 37, and creatinine 1.16. White blood cell count 5.6, hemoglobin 10.9, hematocrit 33.5, and platelets 169. Her ALT was 136. IMAGING DATA: Her EKG revealed her to have sinus bradycardia with poor R-wave progression suggestive of previous anterior infarct. IMPRESSION: 1. Congestive heart failure. 2. Cardiomyopathy. 3. Elevated LFTs. 4. Hypertension. 5. History of automatic implantable cardioverter-defibrillator. 6. Breast carcinoma. 7. Obesity. PLAN: This patient presents with elevated LFTs, with congestive heart failure. She underwent an echocardiogram, which revealed a severe decrease in left ventricular systolic function. From a cardiac standpoint, she is on Entresto and Coreg. We would recommend increasing the dose of her spironolactone. If her blood pressure was elevated, we would consider adding hydralazine and if her blood pressure remains elevated, we will follow this patient with you through her hospitalization. Job ID: [id number]
[2019-11-18] MEDS: hydrALAZINE 25 MG TAB PO SCH ×2 (15:56→20:12)
[2019-11-18] MEDS: HumaLOG 300 UNITS/3 ML VIAL SC PRN (17:12)
[2019-11-18] MEDS: cefTRIAXone\\ROCEPHIN 1 GM in Sodium Chloride 0.9% 100 ML IVPB SCH (18:14)
[2019-11-18] MEDS: Benzonatate 100 MG CAP PO PRN (20:11)
[2019-11-18] MEDS: Diabetic Tussin 200 MG/10 ML UDCUP PO PRN (20:12)
[2019-11-18] MEDS: Insulin Glargine 8 UNITS in Pre-Filled Syringe 1 EACH SC SCH (21:50)
[2019-11-19] MEDS: methylPREDNISolone Sod Succ 40 MG VIAL IVP SCH ×2 (05:59→20:56)
[2019-11-19] MEDS: Levothyroxine 150 MCG TAB PO SCH (05:59)
[2019-11-19] MEDS: Furosemide 40 MG/4 ML VIAL SLOW IVP SCH (05:59)
[2019-11-19] MEDS: Budesonide 0.5 MG/2 ML NEB INH SCH ×2 (07:44→20:08)
[2019-11-19] MEDS ORDERED: Spironolactone 25 MG TAB PO SCH (09:00)
[2019-11-19 09:34] LABS: #Lymphocytes 0.9 thou/uL (1.20-3.40); #Monocytes 0.4 thou/uL (0.11-0.59); #Neutrophils 9.9 thou/uL (1.40-6.50); %Basophils 0.2 % (0.0-1.0); %Eosinophils 0.1 % (0.0-10.0); %Lymphocytes 7.6 % (21.0-51.0); %Monocytes 3.8 % (0.0-10.0); %Neutrophils 88.3 % (42.0-75.0); Hemoglobin 12.4 g/dL (12.0-16.0); Mean Corpuscular HGB CONC 33.4 g/dL (32.0-36.0); Mean Corpuscular Hemoglobin 26.5 pg (27.0-31.0); Mean Corpuscular Volume 79.2 fL (78.0-98.0); Mean Platelet Volume 11.1 fL (7.4-10.4); Platelet Count 220 thou/uL (130-400); RBC Distribution Width 16.9 % (11.5-14.5); Red Blood Cell (RBC) Count 4.68 mill/uL (4.20-5.40); White Blood Cell (WBC) Count 11.2 thou/uL (4.8-10.8)
[2019-11-19] MEDS ORDERED: Dextromethorphan Polistirex 30 MG/5 ML (89 ML BOTTLE) PO PRN (09:46)
[2019-11-19 09:48] LABS: ALT (SGPT) 78 U/L (8-55); AST (SGOT) 98 U/L (5-34); Albumin 3.4 g/dL (3.4-4.8); Alkaline Phosphatase 61 U/L (40-110); Anion Gap 14 mmol/L (10-20); BUN (Urea Nitrogen) 52 mg/dL (9.8-20.1); Calc. Creatinine Clearance 46 mL/min (70-130); Calcium 8.8 mg/dL (7.8-10.44); Carbon Dioxide 30 mmol/L (23-31); Chloride 99 mmol/L (98-107); Estimated GFR-MDRD 38; Globulin 3.6 g/dL (2.4-3.5); Glucose 144 mg/dL (83-110); Potassium 3.4 mmol/L (3.5-5.1); Sodium 140 mmol/L (136-145)
--- NOTE | 2019-11-19 09:52 | PDOC.HOSPP ---
- Subjective Encounter Date: 11/19/19 Encounter Time: 09:50 Subjective: Patient reports her swelling is better and SOB is better. C/o cough that is dry. Had sputum 1 month ago but has become dry cough recently that is bother her. Reports dyspnea with moderate exertion. States cirrhosis is new diagnosis. States she has CKD but is not seeing renal. No fever, chills. Tolerating diet. No N/V/D/C. - Objective Vital Signs & Weight: Vital Signs (12 hours) Temp Pulse Resp BP Pulse Ox 11/19/19 07:45 66 14 11/19/19 04:00 97.5 F L 68 18 151/67 H 95 11/19/19 01:30 72 16 92 L 11/19/19 00:00 154/69 H Weight Admit Weight 191 lb Weight 184 lb I&O: 11/18/19 11/19/19 11/20/19 06:59 06:59 06:59 Intake Total 1170 1270 Output Total 2400 1700 Balance -1230 -430 Result Diagrams: 11/19/19 09:26 11/19/19 09:26 Additional Labs: Accuchecks 11/19/19 11/18/19 11/18/19 05:32 20:43 17:04 POC Glucose 168 H 144 H 201 H 11/18/19 11:12 POC Glucose 159 H Hospitalist ROS - Medication Medications: Active Medications Generic Name Dose Route Start Last Admin Trade Name Freq PRN Reason Stop Dose Admin Aspirin 81 mg 11/15/19 09:00 11/18/19 09:40 Ecotrin PO 81 mg DAILY QUIN Administration Benzonatate 100 mg 11/14/19 17:03 11/18/19 20:11 Tessalon PO 100 mg Q6H PRN Administration Cough Budesonide 0.5 mg 11/15/19 18:30 11/19/19 07:44 Pulmicort Neb Solution INH 0.5 mg BID-RT QUIN Administration Carvedilol 25 mg 11/16/19 21:00 11/18/19 20:12 Coreg PO 25 mg BID QUIN Administration Doxycycline Hyclate 100 mg 11/15/19 09:00 11/18/19 20:12 Vibramycin PO 100 mg BID QUIN Administration Guaifenesin 200 mg 11/14/19 17:03 11/18/19 20:12 Robitussin Sf PO 200 mg Q4H PRN Administration Cough Ceftriaxone Sodium 1 gm/ 100 mls @ 200 mls/hr 11/14/19 19:00 11/18/19 18:14 Sodium Chloride IVPB 100 mls 1900 QUIN Administration Insulin Glargine 8 units/ 0.08 mls @ 0 mls/hr 11/15/19 21:00 11/18/19 21:50 Miscellaneous Medication SC 0.08 mls HS QUIN Administration Insulin Human Lispro 0 units 11/14/19 17:03 11/18/19 17:12 Humalog SC 4 unit .MODERATE SLIDING SC PRN Administration Moderate Correctional Scale Insulin Human Lispro 0 units 11/14/19 17:03 11/17/19 21:23 Humalog SC 2 unit .BEDTIME SLIDING SC PRN Administration Bedtime Correctional Scale Levothyroxine Sodium 150 mcg 11/16/19 06:00 11/19/19 05:59 Synthroid PO 150 mcg 0600 QUIN Administration Pantoprazole Sodium 40 mg 11/15/19 09:00 11/18/19 09:41 Protonix PO 40 mg DAILY QUIN Administration Saccharomyces Boulardii 250 mg 11/15/19 09:00 11/18/19 09:41 Florastor PO 250 mg DAILY QUIN Administration Sacubitril/Valsartan 2 tab 11/15/19 09:00 11/18/19 20:12 Entresto 49 Mg-51 Mg Tablet PO 2 tab BID QUIN Administration Sertraline HCl 100 mg 11/15/19 09:00 11/18/19 20:12 Zoloft PO 100 mg BID QUIN Administration - Exam General Appearance: NAD, awake alert ENT: normocephalic atraumatic, no oropharyngeal lesions, moist mucosa Neck: supple, symmetric, no JVD, no thyromegaly, no lymphadenopathy, no carotid bruit Heart: RRR, no murmur, no gallops, no rubs, normal peripheral pulses Respiratory: no rales, normal chest expansion, no tachypnea Respiratory - other findings: bilateral upper lobe end expiratory wheezes present Gastrointestinal: soft, non-tender, non-distended, normal bowel sounds, no palpable masses Psychiatric: normal affect, normal behavior, A&O x 3 Hosp A/P (1) Pneumonitis Code(s): J18.9 - PNEUMONIA, UNSPECIFIED ORGANISM Status: Acute Plan: CT chest with bilateral upper lobe pneumonitis Continue abx and steroids Duonebs PRN Start guaifenesis around the clock Dextromethorphan PRN dry cough Moderate risk due to need for resolution of pneumonitis prior to DC home (2) CHF (congestive heart failure) Code(s): I50.9 - HEART FAILURE, UNSPECIFIED Status: Chronic Qualifiers: Heart failure type: systolic Heart failure chronicity: acute on chronic Qualified Code(s): I50.23 - Acute on chronic systolic (congestive) heart failure Plan: ECHO with EF of 15-50% and enlarged RV; Moderate MR Likely related to adriamycin used for breast cancer Improving with resolution of edema DC IV lasix Switch to PO lasix Salt and Fluid restricted diet Cardiology on board Continue JOSHUA Crandall (3) Cirrhosis of liver Code(s): K74.60 - UNSPECIFIED CIRRHOSIS OF LIVER Status: Chronic Qualifiers: Hepatic cirrhosis type: unspecified biliary cirrhosis Qualified Code(s): K74.5 - Biliary cirrhosis, unspecified Plan: New diagnosis to patient Denies ETOH abuse Hepatitis panel negative Will need outpatient GI follow up for varices screening and evaluation (4) Diabetes type 2, controlled Code(s): E11.9 - TYPE 2 DIABETES MELLITUS WITHOUT COMPLICATIONS Status: Chronic Qualifiers: Diabetes mellitus half-way insulin use: with termite control technician use Diabetes mellitus complication status: with kidney complications Diabetes mellitus complication detail: with chronic kidney disease Chronic kidney disease stage : stage 3 (moderate) Qualified Code(s): E11.22 - Type 2 diabetes mellitus with diabetic chronic kidney disease; N18.3 - Chronic kidney disease, stage 3 ( moderate); Z79.4 - penitentiary (current) use of insulin Plan: Controlled sugars Diabetic diet, SSI and basal insulin Has CKD-3. Never saw nephrology Will request renal consult Check phos, PTH (5) GERD (gastroesophageal reflux disease) Code(s): K21.9 - GASTRO-ESOPHAGEAL REFLUX DISEASE WITHOUT ESOPHAGITIS Status: Chronic Qualifiers: Esophagitis presence: esophagitis presence not specified Qualified Code(s) : K21.9 - Gastro-esophageal reflux disease without esophagitis Plan: PPI (6) Hypertension Code(s): I10 - ESSENTIAL (PRIMARY) HYPERTENSION Status: Chronic Qualifiers: Hypertension type: essential hypertension Qualified Code(s): I10 - Essential (primary) hypertension Plan: Elevated BP Cardio adjusting BP meds Will follow renal recs (7) Hypothyroidism Code(s): E03.9 - HYPOTHYROIDISM, UNSPECIFIED Status: Chronic Qualifiers: Hypothyroidism type: acquired Qualified Code(s): E03.9 - Hypothyroidism, unspecified Plan: Stable Continue synthroid (8) Obesity (BMI 30-39.9) Code(s): E66.9 - OBESITY, UNSPECIFIED Status: Chronic - Plan continue antibiotics, DVT proph w/lovenox
[2019-11-19] MEDS ORDERED: guaiFENesin 100 MG/5 ML UDCUP PO SCH (10:00)
[2019-11-19] MEDS: Sacubitril 49 MG/Valsartan 51 MG TABLET PO SCH ×2 (10:12→20:56)
[2019-11-19] MEDS: Doxycycline 100 MG CAP PO SCH ×2 (10:12→20:56)
[2019-11-19] MEDS: Carvedilol 25 MG TAB PO SCH ×2 (10:13→20:55)
[2019-11-19] MEDS: hydrALAZINE 25 MG TAB PO SCH ×3 (10:13→20:55)
[2019-11-19] MEDS: guaiFENesin ER 600 MG TAB PO SCH (10:13)
[2019-11-19] MEDS: Aspirin 81 mg Enteric Coated Tablet PO SCH (10:14)
[2019-11-19] MEDS: Saccharomyces boulardii 250 MG CAP PO SCH (10:14)
[2019-11-19] MEDS: Enoxaparin Sodium 40 MG/0.4 ML SYRINGE SC SCH (10:16)
[2019-11-19] MEDS: HumaLOG 300 UNITS/3 ML VIAL SC PRN ×2 (10:18→12:41)
[2019-11-19 10:23] LABS: Phosphorus 4.4 mg/dL (2.3-4.7)
[2019-11-19] MEDS: Diabetic Tussin 200 MG/10 ML UDCUP PO PRN ×2 (10:23→18:34)
[2019-11-19] MEDS: Diabetic Tussin 200 MG/10 ML UDCUP PO SCH ×3 (10:52→21:01)
[2019-11-19] MEDS: Ipratropium Bromide 2.5 ml Neb NEB SCH ×4 (13:02→22:41)
--- NOTE | 2019-11-19 13:23 | CON ---
DATE OF CONSULTATION: 11/19/2019 CONSULTING PHYSICIAN: Eliud Aldridge MD REASON FOR CONSULTATION: CKD. REASON FOR ADMISSION: Shortness of breath. HISTORY OF PRESENT ILLNESS: This is a 79-year-old female with history of CLL, CHF, hypothyroidism, type 2 diabetes, GERD, cirrhosis, came to the hospital with shortness of breath and it has been treated. She was found to have CKD. Nephrology consulted. She has never seen a Nephrology. She denies any chest pain or palpitation. She is still having some shortness of breath, cough, and wheezing. No fever or chills. No nausea or vomiting. No abdominal pain. PAST MEDICAL HISTORY: Positive for CLL, breast cancer, CHF, type 2 diabetes, hypothyroidism, GERD, cirrhosis, and eczema. PAST SURGICAL HISTORY: Cholecystectomy, right mastectomy, hysterectomy, thyroidectomy, and defibrillator placement. HOME MEDICATIONS: List reviewed and include; 1. Sertraline. 2. ProAir. 3. Zofran. 4. Synthroid. 5. Lantus. 6. Humalog. 7. Crestor. 8. Lasix. 9. Coreg. 10. Ecotrin. ALLERGIES: TO TYLENOL, HYDROCODONE, LEVOFLOXACIN, AND PRAVASTATIN. SOCIAL HISTORY: No smoking, alcohol, or illicit drug use. FAMILY HISTORY: No history of any kidney disease. REVIEW OF SYSTEMS: CONSTITUTIONAL: Negative for weight loss or gain, ability to conduct usual activities. SKIN: Negative for rash, itching. EYES: Negative for double vision, pain. ENT/MOUTH: Negative for nose bleeding, neck stiffness, pain, tenderness. CARDIOVASCULAR: Negative for palpitations, dyspnea on exertion, orthopnea. RESPIRATORY: Negative for shortness of breath, wheezing, cough, hemoptysis, fever or night sweats. GASTROINTESTINAL: Negative for poor appetite, abdominal pain, heartburn, nausea, vomiting, constipation, or diarrhea. GENITOURINARY: Negative for urgency, frequency, dysuria, nocturia. MUSCULOSKELETAL: Negative for pain, swelling. NEUROLOGIC/PSYCHIATRIC: Negative for anxiety, depression. ALLERGY/IMMUNOLOGIC: Negative for skin rash, bleeding tendency. PHYSICAL EXAMINATION: GENERAL: Reveals an obese female, in no apparent distress. VITAL SIGNS: Temperature 98.3, pulse 70, respiratory rate 18, and blood pressure 179/74. HEENT: Atraumatic, normocephalic. Oral mucosa moist. NECK: Supple. CARDIOVASCULAR: S1 and S2. Rate and rhythm regular. RESPIRATORY: Clear. GASTROINTESTINAL: Abdomen is soft. MUSCULOSKELETAL: No tenderness. No edema. DERMATOLOGIC: No skin rash. NEUROLOGIC: Alert and awake. PSYCHIATRIC: Mood and affect normal. LABORATORY DATA: Hemoglobin is 12.4, potassium 3.4, sodium 140, BUN is 52, and creatinine is 1.3. It seems like the baseline is around 1.2 to 1.3. Urine with protein negative, and hepatitis panel was negative. IMAGING STUDIES: Chest CT with bilateral pleural effusion, atherosclerosis. Echocardiogram with EF of 15% to 20%, severely depressed. Abdominal CT shows small bilateral pleural effusion and low volume ascites and cirrhosis. Kidneys unremarkable. ASSESSMENT AND PLAN: 1. Chronic kidney disease, stage 3, most likely from cardiorenal syndrome with severe reduction in EF and also ischemic nephropathy given her atherosclerosis history. PTH level is stable. 2. We will continue to monitor. Avoid nephrotoxins. 3. Anemia, controlled and better. 4. History of hypertension, needs better control. Titrate the medications and follow with Cardiology to agree with holding the Entresto for now. She is on Lasix daily. 5. Edema, on Lasix secondary to cardiomyopathy. 6. Mild hypokalemia. We will monitor. Plan to monitor renal function, currently on Entresto and Lasix and spironolactone, which could be contributing to slight reduction in renal function. We will continue close monitoring. Thank you for the consult. We will follow. Job ID: [id number]
[2019-11-19] MEDS: Furosemide 40 MG TAB PO SCH (14:36)
[2019-11-19] MEDS: cefTRIAXone\\ROCEPHIN 1 GM in Sodium Chloride 0.9% 100 ML IVPB SCH (18:35)
[2019-11-19] MEDS: Insulin Glargine 8 UNITS in Pre-Filled Syringe 1 EACH SC SCH (21:07)
[2019-11-20] MEDS: Diabetic Tussin 200 MG/10 ML UDCUP PO SCH ×7 (00:19→21:47)
[2019-11-20] MEDS: Ipratropium Bromide 2.5 ml Neb NEB SCH ×6 (01:32→22:45)
[2019-11-20 04:54] LABS: Anion Gap 15 mmol/L (10-20); BUN (Urea Nitrogen) 55 mg/dL (9.8-20.1); Calc. Creatinine Clearance 50 mL/min (70-130); Calcium 8.2 mg/dL (7.8-10.44); Carbon Dioxide 28 mmol/L (23-31); Chloride 101 mmol/L (98-107); Estimated GFR-MDRD 42; Glucose 148 mg/dL (83-110); Potassium 3.1 mmol/L (3.5-5.1); Sodium 141 mmol/L (136-145)
[2019-11-20 04:56] LABS: #Lymphocytes 0.7 thou/uL (1.20-3.40); #Monocytes 0.4 thou/uL (0.11-0.59); #Neutrophils 8.5 thou/uL (1.40-6.50); %Eosinophils 0.1 % (0.0-10.0); %Lymphocytes 7.5 % (21.0-51.0); %Monocytes 3.7 % (0.0-10.0); %Neutrophils 88.7 % (42.0-75.0); Hemoglobin 11.1 g/dL (12.0-16.0); Mean Corpuscular HGB CONC 32.9 g/dL (32.0-36.0); Mean Corpuscular Volume 79.3 fL (78.0-98.0); Mean Platelet Volume 10.6 fL (7.4-10.4); Platelet Count 198 thou/uL (130-400); RBC Distribution Width 16.8 % (11.5-14.5); Red Blood Cell (RBC) Count 4.26 mill/uL (4.20-5.40); White Blood Cell (WBC) Count 9.6 thou/uL (4.8-10.8)
[2019-11-20] MEDS: Levothyroxine 150 MCG TAB PO SCH (05:46)
[2019-11-20] MEDS: Budesonide 0.5 MG/2 ML NEB INH SCH ×2 (07:41→18:25)
[2019-11-20] MEDS: hydrALAZINE 25 MG TAB PO SCH ×3 (09:16→21:47)
[2019-11-20] MEDS: Aspirin 81 mg Enteric Coated Tablet PO SCH (09:16)
[2019-11-20] MEDS: Doxycycline 100 MG CAP PO SCH ×2 (09:16→21:46)
[2019-11-20] MEDS: Carvedilol 25 MG TAB PO SCH ×2 (09:17→21:47)
[2019-11-20] MEDS: Saccharomyces boulardii 250 MG CAP PO SCH (09:17)
[2019-11-20] MEDS: methylPREDNISolone Sod Succ 40 MG VIAL IVP SCH (09:17)
[2019-11-20] MEDS: Sacubitril 49 MG/Valsartan 51 MG TABLET PO SCH ×2 (09:17→21:46)
[2019-11-20] MEDS: Furosemide 40 MG TAB PO SCH ×2 (09:17→14:46)
[2019-11-20] MEDS: Spironolactone 25 MG TAB PO SCH (09:17)
[2019-11-20 10:02] VITALS: BMI 34.2
[2019-11-20] MEDS ORDERED: Potassium Chloride 20 MEQ TAB PO SCH (10:15)
--- NOTE | 2019-11-20 12:54 | PDOC.HOSPP ---
- Subjective Encounter Date: 11/20/19 Encounter Time: 12:52 Subjective: Patient was seen by nephrology yesterday. Reports continued dry cough without sputum. Reports wheezing and SOB with exertion. She states her BP is better. Denies lightheadedness. No N/V/D/C. No fever, chills. Tolerating diet well. - Objective Vital Signs & Weight: Vital Signs (12 hours) Temp Pulse Pulse Pulse Resp BP BP 11/20/19 11:50 97.4 F L 65 20 11/20/19 10:56 67 20 11/20/19 10:30 74 67 146/66 H 127/59 L 11/20/19 08:00 11/20/19 07:55 98 F 67 20 11/20/19 07:41 73 18 11/20/19 03:07 97.9 F 66 18 11/20/19 01:32 72 16 BP BP Pulse Ox Pulse Ox Pulse Ox 11/20/19 11:50 142/63 H 93 L 11/20/19 10:56 96 11/20/19 10:30 92 L 93 L 11/20/19 08:00 99 11/20/19 07:55 164/74 H 99 11/20/19 07:41 99 11/20/19 03:07 156/68 H 93 L 11/20/19 01:32 95 Weight Admit Weight 191 lb Weight 181 lb I&O: 11/19/19 11/20/19 11/21/19 06:59 06:59 06:59 Intake Total 1270 1425 Output Total 1700 1950 Balance -430 -525 Result Diagrams: 11/20/19 04:27 11/20/19 04:27 Additional Labs: Accuchecks 11/20/19 11/20/19 11/19/19 11:07 05:35 20:58 POC Glucose 135 H 128 H 148 H 11/19/19 17:10 POC Glucose 109 Hospitalist ROS - Medication Medications: Active Medications Generic Name Dose Route Start Last Admin Trade Name Freq PRN Reason Stop Dose Admin Aspirin 81 mg 11/15/19 09:00 11/20/19 09:16 Ecotrin PO 81 mg DAILY QUIN Administration Benzonatate 100 mg 11/14/19 17:03 11/18/19 20:11 Tessalon PO 100 mg Q6H PRN Administration Cough Budesonide 0.5 mg 11/15/19 18:30 11/20/19 07:41 Pulmicort Neb Solution INH 0.5 mg BID-RT QUIN Administration Carvedilol 25 mg 11/16/19 21:00 11/20/19 09:17 Coreg PO 25 mg BID QUIN Administration Doxycycline Hyclate 100 mg 11/15/19 09:00 11/20/19 09:16 Vibramycin PO 100 mg BID QUIN Administration Furosemide 40 mg 11/19/19 14:00 11/20/19 09:17 Lasix PO 40 mg 0900,1400 QUIN Administration Guaifenesin 200 mg 11/14/19 17:03 11/19/19 18:34 Robitussin Sf PO 200 mg Q4H PRN Administration Cough Guaifenesin 200 mg 11/19/19 10:30 11/20/19 11:03 Robitussin Sf PO 11/21/19 10:31 200 mg Q4H QUIN Administration Hydralazine HCl 50 mg 11/19/19 08:06 11/20/19 09:16 Apresoline PO 50 mg TID QUIN Administration Ceftriaxone Sodium 1 gm/ 100 mls @ 200 mls/hr 11/14/19 19:00 11/19/19 18:35 Sodium Chloride IVPB 100 mls 1900 QUIN Administration Insulin Glargine 8 units/ 0.08 mls @ 0 mls/hr 11/15/19 21:00 11/19/19 21:07 Miscellaneous Medication SC 0.08 mls HS QUIN Administration Insulin Human Lispro 0 units 11/14/19 17:03 11/19/19 12:41 Humalog SC 2 unit .MODERATE SLIDING SC PRN Administration Moderate Correctional Scale Insulin Human Lispro 0 units 11/14/19 17:03 11/17/19 21:23 Humalog SC 2 unit .BEDTIME SLIDING SC PRN Administration Bedtime Correctional Scale Ipratropium Graham 2.5 ml 11/19/19 10:30 11/20/19 10:56 Atrovent NEB 2.5 ml [id number] QUIN Administration Levothyroxine Sodium 150 mcg 11/16/19 06:00 11/20/19 05:46 Synthroid PO 150 mcg 0600 QUIN Administration Pantoprazole Sodium 40 mg 11/15/19 09:00 11/20/19 09:17 Protonix PO 40 mg DAILY QUIN Administration Saccharomyces Boulardii 250 mg 11/15/19 09:00 11/20/19 09:17 Florastor PO 250 mg DAILY QUIN Administration Sacubitril/Valsartan 2 tab 11/15/19 09:00 11/20/19 09:17 Entresto 49 Mg-51 Mg Tablet PO 2 tab BID QUIN Administration Sertraline HCl 100 mg 11/15/19 09:00 11/20/19 09:17 Zoloft PO 100 mg BID QUIN Administration Spironolactone 50 mg 11/20/19 08:47 11/20/19 09:17 Aldactone PO 50 mg DAILY QUIN Administration - Exam General Appearance: NAD, awake alert General - other findings: sitting in the chair Eye: PERRL, anicteric sclera ENT: normocephalic atraumatic, no oropharyngeal lesions, moist mucosa Neck: supple, symmetric, no thyromegaly Heart: RRR, no murmur, no gallops, normal peripheral pulses Respiratory: no rales, no ronchi, normal chest expansion, wheezes (bilateral diffuse end expiratory) Gastrointestinal: soft, non-tender, non-distended, normal bowel sounds Extremities: no cyanosis, no clubbing Hosp A/P (1) Pneumonitis Code(s): J18.9 - PNEUMONIA, UNSPECIFIED ORGANISM Status: Acute (2) CHF (congestive heart failure) Code(s): I50.9 - HEART FAILURE, UNSPECIFIED Status: Chronic Qualifiers: Heart failure type: systolic Heart failure chronicity: acute on chronic Qualified Code(s): I50.23 - Acute on chronic systolic (congestive) heart failure (3) Cirrhosis of liver Code(s): K74.60 - UNSPECIFIED CIRRHOSIS OF LIVER Status: Chronic Qualifiers: Hepatic cirrhosis type: unspecified biliary cirrhosis Qualified Code(s): K74.5 - Biliary cirrhosis, unspecified (4) Diabetes type 2, controlled Code(s): E11.9 - TYPE 2 DIABETES MELLITUS WITHOUT COMPLICATIONS Status: Chronic Qualifiers: Diabetes mellitus stock repairer insulin use: with skilled nursing use Diabetes mellitus complication status: with kidney complications Diabetes mellitus complication detail: with chronic kidney disease Chronic kidney disease stage : stage 3 (moderate) Qualified Code(s): E11.22 - Type 2 diabetes mellitus with diabetic chronic kidney disease; N18.3 - Chronic kidney disease, stage 3 ( moderate); Z79.4 - FDC (current) use of insulin (5) GERD (gastroesophageal reflux disease) Code(s): K21.9 - GASTRO-ESOPHAGEAL REFLUX DISEASE WITHOUT ESOPHAGITIS Status: Chronic Qualifiers: Esophagitis presence: esophagitis presence not specified Qualified Code(s) : K21.9 - Gastro-esophageal reflux disease without esophagitis (6) Hypertension Code(s): I10 - ESSENTIAL (PRIMARY) HYPERTENSION Status: Chronic Qualifiers: Hypertension type: essential hypertension Qualified Code(s): I10 - Essential (primary) hypertension (7) Hypothyroidism Code(s): E03.9 - HYPOTHYROIDISM, UNSPECIFIED Status: Chronic Qualifiers: Hypothyroidism type: acquired Qualified Code(s): E03.9 - Hypothyroidism, unspecified (8) Obesity (BMI 30-39.9) Code(s): E66.9 - OBESITY, UNSPECIFIED Status: Chronic - Plan DVT proph w/heparin Hosp A/P (1) Pneumonitis Code(s): J18.9 - PNEUMONIA, UNSPECIFIED ORGANISM Status: Acute Plan: CT chest with bilateral upper lobe pneumonitis Continue abx and steroids Switch steroids to PO route Continue duonebs PRN Patient encouraged to use the dextromethorphan PRN dry cough Moderate risk due to need for resolution of pneumonitis prior to DC home (2) CHF (congestive heart failure) Code(s): I50.9 - HEART FAILURE, UNSPECIFIED Status: Chronic Qualifiers: Heart failure type: systolic Heart failure chronicity: acute on chronic Qualified Code(s): I50.23 - Acute on chronic systolic (congestive) heart failure Plan: ECHO with EF of 15-50% and enlarged RV; Moderate MR Likely related to adriamycin used for breast cancer Continue PO lasix Salt and Fluid restricted diet Cardiology on board Continue Entresto, BB Spironolactone dose being adjusted by cardiology Pt. also placed on hydralazine and nitrite therapy by cardio (3) Cirrhosis of liver Code(s): K74.60 - UNSPECIFIED CIRRHOSIS OF LIVER Status: Chronic Qualifiers: Hepatic cirrhosis type: unspecified biliary cirrhosis Qualified Code(s): K74.5 - Biliary cirrhosis, unspecified Plan: New diagnosis to patient Denies ETOH abuse Hepatitis panel negative Patient requesting inpatient GI consult for the same I've consulted Dr. Bond Will follow up recommendations (4) Diabetes type 2, controlled Code(s): E11.9 - TYPE 2 DIABETES MELLITUS WITHOUT COMPLICATIONS Status: Chronic Qualifiers: Diabetes mellitus stock repairer insulin use: with stock repairer use Diabetes mellitus complication status: with kidney complications Diabetes mellitus complication detail: with chronic kidney disease Chronic kidney disease stage : stage 3 (moderate) Qualified Code(s): E11.22 - Type 2 diabetes mellitus with diabetic chronic kidney disease; N18.3 - Chronic kidney disease, stage 3 ( moderate); Z79.4 - FDC (current) use of insulin Plan: Controlled sugars Continue diabetic diet, SSI and basal insulin Has CKD-3. Nephrology on board. Case DW Dr. Ponce Appreciate input and assistance Avoid nephrotoxic meds and hypotension (5) GERD (gastroesophageal reflux disease) Code(s): K21.9 - GASTRO-ESOPHAGEAL REFLUX DISEASE WITHOUT ESOPHAGITIS Status: Chronic Qualifiers: Esophagitis presence: esophagitis presence not specified Qualified Code(s) : K21.9 - Gastro-esophageal reflux disease without esophagitis Plan: Continue PPI therapy (6) Hypertension Code(s): I10 - ESSENTIAL (PRIMARY) HYPERTENSION Status: Chronic Qualifiers: Hypertension type: essential hypertension Qualified Code(s): I10 - Essential (primary) hypertension Plan: BP better controlled with meds Cardio adjusting BP meds (7) Hypothyroidism Code(s): E03.9 - HYPOTHYROIDISM, UNSPECIFIED Status: Chronic Qualifiers: Hypothyroidism type: acquired Qualified Code(s): E03.9 - Hypothyroidism, unspecified Plan: Stable Continue synthroid (8) Obesity (BMI 30-39.9) Code(s): E66.9 - OBESITY, UNSPECIFIED Status: Chronic
--- NOTE | 2019-11-20 13:22 | PRG ---
DATE OF SERVICE: 11/20/2019 SUBJECTIVE: Patient was seen and examined at bedside and overnight events noted. Patient denies any shortness of breath or chest pain or palpitation. No history of nausea or vomiting or diarrhea or fever or chills or cramps. OBJECTIVE: GENERAL: This is a well-built female, in no apparent distress. VITAL SIGNS: Temperature 97.4. Heart rate 65. Respiratory rate 20. Blood pressure 148/63. HEENT: Atraumatic, normocephalic. Oral mucosa is moist NECK: Supple. CARDIOVASCULAR: S1, S2 heard. Rate and rhythm regular. RESPIRATORY: Clear to auscultation. GASTROINTESTINAL: Abdomen is soft. MUSCULOSKELETAL: No tenderness. No edema. DERMATOLOGIC: No skin rash. NEUROLOGIC: Alert and awake and oriented X3. No focal neurologic deficits. Moving all the extremities. PSYCHIATRIC: Mood and affect normal. LABORATORY DATA: Potassium is 3.1, BUN is 55, creatinine is 1.2. ASSESSMENT AND PLAN: 1. Acute kidney injury on chronic kidney disease, stage 3, stable. 2. Hypokalemia, replace. 3. Edema, control. 4. History of hypertension. 5. Anemia. Labs are stable. We will monitor. Avoid nephrotoxins. Replace potassium. Job ID: [id number]
[2019-11-20] MEDS: HumaLOG 300 UNITS/3 ML VIAL SC PRN (17:27)
[2019-11-20] MEDS: cefTRIAXone\\ROCEPHIN 1 GM in Sodium Chloride 0.9% 100 ML IVPB SCH (18:09)
[2019-11-20] MEDS: Insulin Glargine 8 UNITS in Pre-Filled Syringe 1 EACH SC SCH (21:41)
--- NOTE | 2019-11-21 00:15 | CON ---
DATE OF CONSULTATION: 11/20/2019 CHIEF COMPLAINT: Shortness of breath. HISTORY OF PRESENT ILLNESS: Ms. Victoria is a 79-year-old woman, who was admitted with shortness of breath. She was also noted to have abnormal liver tests. She had a CT scan of the abdomen and pelvis that showed nodularity to her liver and GI was consulted to evaluate cirrhosis. She has had no prior diagnosis of cirrhosis. No alcohol use previously. No nausea or vomiting. She has intermittent loose feathery stools. She has had no blood in the stool. She had a colonoscopy at [facility] in [place], a year ago. She has never had polyps, but her sister has had polyps. She has been evaluated by Cardiology for congestive heart failure and fluid retention. She has been evaluated by Nephrology for elevated creatinine as well. PAST MEDICAL HISTORY: Congestive heart failure, breast cancer status post surgery and chemotherapy. Lymphedema in her right arm. Hypothyroidism, diabetes mellitus type 2, gastroesophageal reflux disease, eczema. PAST SURGICAL HISTORY: Cholecystectomy, mastectomy, hysterectomy, thyroidectomy, defibrillator placement. FAMILY HISTORY: Negative for GI malignancy. Her sister has had multiple polyps and gets frequent colonoscopies. SOCIAL HISTORY: No alcohol, tobacco, or drugs. ALLERGIES: VICODIN. MEDICATIONS: Currently in the hospital include: 1. Aspirin. 2. Carvedilol. 3. Ceftriaxone. 4. Doxycycline. 5. Insulin as needed. 6. Atrovent. 7. Synthroid. 8. Pantoprazole. 9. Prednisone 40 mg daily. 10. Spironolactone 50 mg daily. 11. She is on furosemide 40 mg two times daily. 12. Sertraline. 13. Entresto. REVIEW OF SYSTEMS: Negative x10 systems reviewed, except as stated in the history of present illness. PHYSICAL EXAMINATION: VITAL SIGNS: Temperature 97.4, pulse 69, blood pressure 141/65. GENERAL: She is in no acute distress. Alert and oriented x3. HEENT: Eyes have no scleral icterus. Oropharynx is clear without lesion. She has no asterixis on neurological exam. LUNGS: Have bilateral wheezes expiratory throughout. HEART: Regular rate and rhythm without murmur. ABDOMEN: Soft, nontender, and nondistended. Bowel sounds are present. She is obese. EXTREMITIES: 2+ lower extremity edema. LABORATORY DATA: White blood cell count 9.6, hemoglobin 11.1, platelets 198. Creatinine 1.25 with BUN of 55, bilirubin 1.0, AST 98, ALT 78, alkaline phosphatase 61, albumin 3.4, alpha fetoprotein 3.1, viral hepatitis acute panel is negative. IMAGING: CT scan of the abdomen and pelvis shows nodularity to the liver. The spleen was prominent at 12 cm. There is small amount of fluid around the liver, spleen, and colonic gutters. IMPRESSION: 1. New diagnosis of cirrhosis. The synthetic function of her liver appears compensated with albumin at 3.4. I do not have an INR to comment. She most likely has fatty liver disease as the etiology of cirrhosis given her obesity and metabolic syndrome. Hepatitis B and C are negative. I will check additional labs to evaluate etiology further including iron saturation, alpha-1 antitrypsin level, and autoimmune markers. I discussed the potential complications of cirrhosis with her including ascites, varices, encephalopathy, liver cancer. Her alpha fetoprotein is negative. Venous phase imaging on CT did not show obvious liver lesions. Complicating factors for her congestive heart failure and chronic kidney disease. 2. Chronic kidney disease. 3. Congestive heart failure. 4. Ascites. She does have a small amount of ascites by CT. Not enough to perform paracentesis. She will be treated with low-salt diet and she is on spironolactone and furosemide. 5. Her spleen is prominent, but not significantly enlarged. Her platelets are normal. There are no obvious signs of portal hypertension at this point. She is already on carvedilol. Eventually, we can perform endoscopy as an outpatient for varices screening. RECOMMENDATIONS: 1. Check labs to evaluate for other etiology of liver disease as stated above. 2. Low-salt diet, furosemide, spironolactone as she is on. She is also having these managed by Nephrology and Cardiology. 3. Follow up as an outpatient and we can plan ultrasound every 6 months and alpha fetoprotein every 6 months. 4. Check hepatitis B surface antibody and hepatitis A total antibody. Vaccinate if these are negative. 5. She has no signs of encephalopathy. 6. Follow up in GI clinic. I will sign off for now. Please call if GI can be of assistance. Job ID: [id number]
[2019-11-21] MEDS: Ipratropium Bromide 2.5 ml Neb NEB SCH ×4 (02:19→15:59)
[2019-11-21] MEDS: Diabetic Tussin 200 MG/10 ML UDCUP PO SCH ×3 (03:15→11:05)
[2019-11-21 05:37] LABS: Band 1 % (5-11); Lymphocytes 5 % (21-51); MDiff Complete? YES; Mean Corpuscular HGB CONC 32.4 g/dL (32.0-36.0); Mean Corpuscular Hemoglobin 26.4 pg (27.0-31.0); Mean Corpuscular Volume 81.4 fL (78.0-98.0); Mean Platelet Volume 11.2 fL (7.4-10.4); Monocytes 3 % (0-10); Neutrophil 91 % (42-75); Platelet Count 238 thou/uL (130-400); Platelet Morphology Comment Appears Adequate; RBC Distribution Width 17.3 % (11.5-14.5); RBC Morphology Normal; Red Blood Cell (RBC) Count 4.56 mill/uL (4.20-5.40); White Blood Cell (WBC) Count 10.3 thou/uL (4.8-10.8)
[2019-11-21 05:40] LABS: Anion Gap 14 mmol/L (10-20); BUN (Urea Nitrogen) 46 mg/dL (9.8-20.1); Calc. Creatinine Clearance 56 mL/min (70-130); Carbon Dioxide 24 mmol/L (23-31); Chloride 104 mmol/L (98-107); Estimated GFR-MDRD 48; Glucose 109 mg/dL (83-110); Iron 37 ug/dL (50-170); Iron Binding Capacity, Total 286 mcg/dL (265-497); Potassium 3.5 mmol/L (3.5-5.1); Sodium 138 mmol/L (136-145)
[2019-11-21] MEDS: Levothyroxine 150 MCG TAB PO SCH (05:56)
[2019-11-21 05:59] LABS: Ferritin 128.11 ng/mL (10-291)
[2019-11-21 06:00] LABS: Hep B Surf AB Non-Reactive (NonReactive)
[2019-11-21] MEDS: Doxycycline 100 MG CAP PO SCH (07:44)
[2019-11-21] MEDS: Aspirin 81 mg Enteric Coated Tablet PO SCH (07:44)
[2019-11-21] MEDS: Saccharomyces boulardii 250 MG CAP PO SCH (07:44)
[2019-11-21] MEDS: hydrALAZINE 25 MG TAB PO SCH ×2 (07:45→15:57)
[2019-11-21] MEDS: Furosemide 40 MG TAB PO SCH ×2 (07:45→15:57)
[2019-11-21] MEDS: Sacubitril 49 MG/Valsartan 51 MG TABLET PO SCH (07:45)
[2019-11-21] MEDS: Spironolactone 25 MG TAB PO SCH (07:45)
[2019-11-21] MEDS: Carvedilol 25 MG TAB PO SCH (07:46)
[2019-11-21] MEDS ORDERED: predniSONE 20 MG TAB PO SCH (08:00)
[2019-11-21 09:18] LABS: Hemoglobin A1c 5.9 % (4.0-6.0)
[2019-11-21] MEDS: Budesonide 0.5 MG/2 ML NEB INH SCH (09:30)
[2019-11-21 11:34] VITALS: TEMP 97.4
--- NOTE | 2019-11-21 13:16 | DIS ---
DATE OF ADMISSION: 11/14/2019 DATE OF DISCHARGE: 11/21/2019 PRIMARY CARE PHYSICIAN: Dr. Apolonia Montero. ADMISSION DIAGNOSES: 1. Acute on chronic systolic congestive heart failure. 2. Abnormal LFTs. 3. Diabetes mellitus type 2. 4. Anemia. 5. Hypertension. 6. Hypothyroidism. 7. History of breast cancer with right lymphedema. 8. Gastroesophageal reflux disease. DISCHARGE DIAGNOSES: 1. Pneumonitis bilaterally. 2. Acute on chronic systolic congestive heart failure. 3. Cirrhosis of the liver, which is a new diagnosis. 4. Diabetes mellitus type 2 with chronic kidney disease stage 3 on long-term insulin therapy. 5. Gastroesophageal reflux disease. 6. Essential hypertension. 7. Hypothyroidism. 8. Obesity. CONSULTATIONS: 1. Cardiology, Dr. Francesco Galindo. 2. Nephrology, Dr. Ponce. 3. Gastroenterology, Dr. Bond. PERTINENT PROCEDURES AND IMAGING: The patient underwent an echocardiogram on 11/16/2019, which revealed severely depressed left ventricular ejection fraction at 15% to 20%. Moderately enlarged right ventricular cavity. Pacer wire in the right ventricle. Moderate mitral regurgitation and mild tricuspid regurgitation. Chest CT scan was performed on 11/18/2019, which revealed a multifocal pneumonitis bilaterally predominantly within the upper lobes. The patient underwent abdomen and pelvis CT scan on 11/14/2019, which revealed small bilateral pleural effusions. Low volume ascites and liver changes suggestive of cirrhosis. BRIEF HOSPITAL COURSE: The patient is a 79-year-old female with past medical history of congestive heart failure, breast cancer with chemotherapy with Adriamycin, subsequently developing nonischemic cardiomyopathy, status post AICD, who presented to the Emergency Department due to shortness of breath. The patient was also found to have orthopnea, PND, and pedal edema. The patient was admitted with a diagnosis of acute on chronic systolic CHF. Cardiology was consulted. The patient was given intravenous diuretics with adequate resolution of her shortness of breath and improvement in her leg swelling. As the patient was found to have chronic kidney disease and the patient is not under the care of her trim installer, Dr. Ponce from Nephrology was consulted. The patient's renal function stabilized with adequate diuretic regimen. The patient was also found to have cirrhosis during hospital stay. The patient requested to be set up with a chief architect. Hence, Dr. Bond was consulted and the patient was evaluated. The patient was not felt to require any immediate interventions. Outpatient followup with Gastroenterology in the clinic has been recommended. The patient was placed on spironolactone and continued on Entresto. The patient has also been placed on hydralazine for adequate blood pressure control. The patient has been cleared for discharge by Cardiology. She has also been cleared for discharge by Nephrology and Gastroenterology. As the patient is back to baseline, the patient has been deemed stable to be discharged home today. The patient was evaluated by Physical Therapy and Occupational Therapy and was felt stable to discharge home without any physical therapy and occupational therapy or home health. On the day of discharge, the patient is sitting in the chair and appears to be in no acute distress. Auscultation of the lungs reveal clear breath sounds bilaterally. DISCHARGE INSTRUCTIONS: 1. Discharge disposition, home. 2. Discharge medications - reconciled. 3. Discharge followup;. a. Primary care physician Dr. Montero on December 01, [address]. b[address] Dr. Francesco Galindo, in two to three weeks. c. Dr. Fermin Bond, in three to four weeks. d. Dr. Ponce, in three to four weeks. 4. Discharge activity - as tolerated. 5. Discharge diet, diabetic heart healthy, 2 g sodium diet with 2 L/day fluid restriction. TIME SPENT: Total time taken for discharge - 40 minutes. Job ID: [id number]
--- NOTE | 2019-11-21 14:23 | PRG ---
DATE OF SERVICE: 11/21/2019 SUBJECTIVE: Patient was seen and examined at bedside and overnight events noted. Patient denies any shortness of breath or chest pain or palpitation. No history of nausea or vomiting or diarrhea or fever or chills or cramps. OBJECTIVE: GENERAL: This is an obese female, in no acute distress. VITAL SIGNS: Temperature 97.4, heart rate 65, respiratory rate , and blood pressure 136/68. HEENT: Atraumatic, normocephalic. Oral mucosa is moist NECK: Supple. CARDIOVASCULAR: S1, S2 heard. Rate and rhythm regular. RESPIRATORY: Clear to auscultation. GASTROINTESTINAL: Abdomen is soft. MUSCULOSKELETAL: No tenderness. No edema. DERMATOLOGIC: No skin rash. NEUROLOGIC: Alert and awake and oriented X3. No focal neurologic deficits. Moving all the extremities. PSYCHIATRIC: Mood and affect normal. LABORATORY DATA: Creatinine 1.1. ASSESSMENT AND PLAN: 1. Acute kidney injury on chronic kidney disease, stage 3, much better. 2. Edema, controlled. 3. Hypertension. 4. Anemia. Overall labs are stable. Continue close monitoring as outpatient. The patient was advised to follow up with the clinic in 1 to 2 weeks. Job ID: [id number]
[2019-11-21 15:53] LABS: EliA Vaculitis New Method **** NEW METHOD ****; Mitochondrial Ab 0.6 U/mL (<4 Negative)
[2019-11-21 15:58] VITALS: BP 143/66
[2019-11-21] MEDS: Diabetic Tussin 200 MG/10 ML UDCUP PO PRN (15:59)
[2019-11-24 13:09] LABS: Smooth Muscle Total ABS 7 Units (0-19)
== END 2019-11-21 17:10 | disposition home or self-care (01) | DRG 291 ==
LOC: ERS 11:40 → 2NO 16:59
PROVIDERS: ADMIT Internal Medicine; ATTEND Internal Medicine
DX: I13.0 Hypertensive heart and chronic kidney disease with heart failure and stage 1 through stage 4 chronic kidney disease, or unspecified chronic kidney disease (principal); J18.9 Pneumonia, unspecified organism; I50.23 Acute on chronic systolic (congestive) heart failure; C77.9 Secondary and unspecified malignant neoplasm of lymph node, unspecified; R18.8 Other ascites; N17.9 Acute kidney failure, unspecified; C50.019 Malignant neoplasm of nipple and areola, unspecified female breast; E03.9 Hypothyroidism, unspecified; K21.9 Gastro-esophageal reflux disease without esophagitis; K74.60 Unspecified cirrhosis of liver; E11.22 Type 2 diabetes mellitus with diabetic chronic kidney disease; E66.9 Obesity, unspecified; D63.1 Anemia in chronic kidney disease; I42.8 Other cardiomyopathies; Z95.810 Presence of automatic (implantable) cardiac defibrillator; E87.6 Hypokalemia; I08.1 Rheumatic disorders of both mitral and tricuspid valves; N18.3 Chronic kidney disease, stage 3 (moderate); Z79.4 Long term (current) use of insulin; Z90.49 Acquired absence of other specified parts of digestive tract; Z90.12 Acquired absence of left breast and nipple; Z90.710 Acquired absence of both cervix and uterus; Z68.34 Body mass index [BMI] 34.0-34.9, adult; Z88.1 Allergy status to other antibiotic agents; Z88.8 Allergy status to other drugs, medicaments and biological substances
CPT/HCPCS: 36415; 36416; 71045; 71046; 71250; 74177; 80048; 80053; 80074; 81003; 82103; 82104; 82105; 82140; 82330; 82550; 82728; 82803; 83036; 83516; 83540; 83550; 83605; 83690; 83735; 83880; 83970; 84100; 84443; 84484; 84550; 85025; 86706; 86708; 87324; 87449; 93005; 93306; 93798; 94640; 94760; J0696; J1650; J1815; J1940; J2270; J2405; J2920; J3490; J7512; J7620; J7626; Q9967